=== PATIENT | female | born 1975 | race Caucasian/White ===

== ENCOUNTER → 2018-05-30 | Outpatient (CLI) | payer BC ==
--- NOTE | 2018-06-04 17:00 | MM ---
Reason for exam: screening (asymptomatic). Baseline mammogram. History: Taking hormonal contraceptives beginning at age 15. Physical Findings: Nurse did not find any significant physical abnormalities on exam. MG 3D Screening Mammo W/Cad Bilateral CC and MLO view(s) were taken. The breast tissue is heterogeneously dense. This may lower the sensitivity of mammography. No discrete abnormality. These results were verbally communicated with the patient and result sheet given to the patient on 05/30/18 ASSESSMENT: Benign, BI-RAD 2 RECOMMENDATION: Routine screening mammogram of both breasts in 1 year.
== END | disposition home or self-care (01) ==
LOC: RADMAMWWP 07:10
PROVIDERS: ATTEND Obstetrics & Gynecology
DX: Z12.31 Encounter for screening mammogram for malignant neoplasm of breast (principal)
CPT/HCPCS: 77063; 77067

== ENCOUNTER 2019-12-31 12:28 | Day surgery (SDC) | payer SELFPAY ==
[2019-12-24 14:57] VITALS: BMI 29.5
[~2019-12-31 12:28] MED LIST: DEXAMETHASONE SOD PHOSPHATE 10 MG/ML 1 ML VIAL IV ONE; LACTATED RINGERS 1,000 ML IV SCH; MIDAZOLAM 2 MG/2 ML VIAL IV PRN; ONDANSETRON 4 MG/2 ML VIAL IVP ONE
[2019-12-31] MEDS ORDERED: ONDANSETRON 4 MG/2 ML VIAL ONE (13:21)
[2019-12-31] MEDS: LIDOCAINE 1% (10MG/ML) FOR IV START INTRADERMA PRN ×2 (13:22→13:37)
[2019-12-31 13:27] LABS: Basophils % (A) 0 %; Eosinophils # (A) 0.1 k/uL (0-0.7); Eosinophils % (A) 1 %; HCT 41.5 % (34.0-46.0); HGB 13.6 gm/dL (11.4-16.0); Lymphocytes # (A) 1.2 k/uL (1.0-4.8); Lymphocytes % (A) 12 %; MCH 33.2 pg (25.0-35.0); MCHC 32.7 g/dL (31.0-37.0); MCV 101.6 fL (80.0-100.0); Macrocytosis Slight; Mean Platelet Volume 8.4; Monocytes # (A) 0.3 k/uL (0-1.0); Monocytes % (A) 3 %; Neutrophils # (A) 7.7 k/uL (1.3-7.7); Neutrophils % (A) 82 %; Platelet Count 316 k/uL (150-450); RBC 4.09 m/uL (3.80-5.40); RDW 14.1 % (11.5-15.5); WBC 9.4 k/uL (3.8-10.6)
[2019-12-31] MEDS ORDERED: MIDAZOLAM 2 MG/2 ML VIAL IV ONE (13:31)
[2019-12-31] MEDS ORDERED: fentaNYL (PF) 50 MCG/ML 2 ML AMP IV ONE (13:31)
[2019-12-31] MEDS: HYDROmorphone 0.5 MG/0.5 ML SYRINGE IVP PRN ×2 (13:37→15:39)
[2019-12-31 13:38] LABS: African American GFR (CKD) >90 (>60 ml/min/1.73 sqM); Anion Gap 9 mmol/L; Blood Urea Nitrogen 17 mg/dL (7-17); Calcium 8.9 mg/dL (8.4-10.2); Carbon Dioxide 21 mmol/L (22-30); Chloride 106 mmol/L (98-107); Glucose 104 mg/dL (74-99); Non-African American GFR(CKD) >90 (>60 ml/min/1.73 sqM); Potassium 4.3 mmol/L (3.5-5.1); Sodium 136 mmol/L (137-145)
[2019-12-31] MEDS ORDERED: HYDROmorphone (PF) 1 MG/ML ONE (14:10)
[2019-12-31] MEDS ORDERED: ROPIVACAINE 5 MG/ML 30 ML VIAL ONE (14:10)
[2019-12-31] MEDS ORDERED: PROPOFOL 10 MG/ML 20 ML VIAL IV ONE (14:10)
[2019-12-31] MEDS ORDERED: fentaNYL (PF) 50 MCG/ML 2 ML AMP ONE (14:10)
[2019-12-31] MEDS ORDERED: DEXAMETHASONE SOD PHOSPHATE 4 MG/ML 1 ML VIAL ONE (14:10)
[2019-12-31] MEDS ORDERED: LIDOCAINE 1% INJ 10MG/ML (20 ML MDV) ONE (14:10)
[2019-12-31] MEDS ORDERED: MIDAZOLAM 2 MG/2 ML VIAL ONE (14:10)
[2019-12-31] MEDS ORDERED: ceFAZolin 1,000 MG in SODIUM CHLORIDE 0.9% 1,000 ML IRRIGATION ONE (14:55)
--- NOTE | 2019-12-31 15:12 | P.OP ---
Date of Procedure: 12/31/19 Preoperative Diagnosis: Displaced fracture right distal fibula Postoperative Diagnosis: Displaced fracture right distal fibula Procedure(s) Performed: Open reduction and fixation right distal fibula Implants: Curtis and nephew distal fibular plates Anesthesia: RESHMA Surgeon: Miguel Angel Fernandez Information Systems Professor #1: Lori Rice Estimated Blood Loss (ml): 10 Pathology: none sent Condition: stable Disposition: PACU Indications for Procedure: This is a 44-year-old female that sustained a fall last week and x-rays demonstrated a displaced fracture of her right distal fibula with widening of the ankle mortise. After discussing the surgical nonsurgical treatment options with her at length, I recommended open reduction and internal fixation of right distal fibula. Formed consent was obtained. Operative Findings: The operative findings are consistent with a displaced fracture of the right distal fibula with widening of the ankle mortise Description of Procedure: The patient was seen and evaluated in the preoperative area. The consent was reviewed and the operative site was marked with a skin marker. Patient was then brought to the operating room and given 2 g of Ancef by the anesthesia department. A general anesthetic was then administered by the anesthesia department. Tourniquet was placed on the upper thigh and the lower extremity was then prepped and draped in the usual sterile fashion. A universal timeout was then performed which confirmed the patient's name, surgical site, ALLERGIES, and consent. The lower extremity was then exsanguinated, and the tourniquet inflated to 350 mmHg. A standard lateral incision was then performed over the distal fibula with the skin and subcutaneous tissue sharply incised with the incision centered over the fracture site. Tissues were carefully dissected down to the fracture site. The fracture hematoma was evacuated and the fracture was then reduced with bone reducing clamps. Fluoroscopic x-rays confirmed reduction of the fracture and nondenominational of the ankle mortise. Next, an anterior to posterior lag screw was then placed by over drilling the proximal hole. After the anterior to posterior lag screw was placed, the bone clamp was able to be removed and the fracture was held stable. Next, a distal fibular plate was placed on the lateral aspect of the distal fibula. Screws were then were placed both proximally and distally in order to fixate the plate to the distal fibula. After all the screws then placed, final fluoroscopic x-rays confirmed reduction of the fracture, nondenominational of the ankle mortise, and placement of the plate and screws. The tourniquet was then released and hemostasis was obtained. The incision site was then irrigated with antibiotic solution. Wound was then closed with 2-0 Vicryl for the subcutaneous tissue and anitha for the skin. Sterile dressings were applied, and a well-padded and molded posterior splint was placed. Patient was then transported to the recovery room in stable condition. The preschool teacher assistant Lori Rice NP was required due to the complexity of the surgery and the need for a skilled surgical asst.
[2019-12-31 15:32] VITALS: TEMP 97
--- NOTE | 2019-12-31 15:49 | FL ---
EXAMINATION TYPE: FL guidance operating room, XR ankle complete RT DATE OF EXAM: 12/31/2019 CLINICAL HISTORY: Right ankle fracture. TECHNIQUE: Fluoroscopy. Complete intraoperative views right ankle. COMPARISON: None. FINDINGS: Fluoroscopic guidance was provided during open reduction internal fixation procedure perfo rmed by Dr. Fernandez. A total of 18 seconds of fluoroscopic time was utilized during the procedure a nd 3 spot fluoroscopic intraoperative images are acquired. Images acquired show placement of lateral fixating plate through oblique difficult to visualize later al malleolus fracture. Satisfactory alignment is seen after reduction and fixation on intraoperative images saved. IMPRESSION: As Above.
[2019-12-31] MEDS ORDERED: HYDROcodone/APAP 7.5-325MG 1 EACH TAB ONE (16:25)
[2019-12-31] MEDS ORDERED: HYDROcodone/APAP 7.5-325MG 1 EACH TAB PO ONE (16:27)
[2019-12-31 16:38] VITALS: BP 133/66; PULSE 94; RESP 16
--- NOTE | 2019-12-31 21:35 | P.ANPRN ---
Procedure Note - Anesthesia - Nerve Block Performed Right Adductor Canal Single Time Out Performed: Yes Date of Procedure: 12/31/19 Procedure Start Time: 13:30 Procedure Stop Time: 13:47 Location of Patient: PreOp Indication: Acute Post-Operative Pain, Dx/Pain Location, Requested by Surgeon Specifically requested for management of pain by : Miguel Angel Fernandez Sedation Type: Sedate with meaningful contact maintained Preparation: Sterile Prep Position: Supine Catheter: None Needle Types: Facet Needle Gauge: 20 Ultrasound used to visualize needle placement: Yes Ultrasound used to observe medication spread: Yes Injectate: 0.5% Ropivacaine (see comment for volume) Blood Aspirated: No Pain Paresthesia on Injection Noted: No Resistance on Injection: Normal Image Stored and Saved: Yes Events: Uneventful and Well Tolerated (15cc 0.5% Ropivacaine)
== END 2019-12-31 17:04 | disposition home or self-care (01) ==
LOC: OR 12:28
PROVIDERS: ATTEND Orthopaedic Surgery
DX: S82.831A Other fracture of upper and lower end of right fibula, initial encounter for closed fracture (principal); S93.402A Sprain of unspecified ligament of left ankle, initial encounter; F98.8 Other specified behavioral and emotional disorders with onset usually occurring in childhood and adolescence; R51 Headache; R42 Dizziness and giddiness; L30.9 Dermatitis, unspecified; F17.200 Nicotine dependence, unspecified, uncomplicated; M19.032 Primary osteoarthritis, left wrist; K08.409 Partial loss of teeth, unspecified cause, unspecified class; K08.89 Other specified disorders of teeth and supporting structures; J44.9 Chronic obstructive pulmonary disease, unspecified; K21.9 Gastro-esophageal reflux disease without esophagitis; Z79.899 Other long term (current) drug therapy; Z79.1 Long term (current) use of non-steroidal anti-inflammatories (NSAID); Z79.891 Long term (current) use of opiate analgesic; Z79.82 Long term (current) use of aspirin; Z97.3 Presence of spectacles and contact lenses; Z86.79 Personal history of other diseases of the circulatory system; Z87.09 Personal history of other diseases of the respiratory system; Z91.09 Other allergy status, other than to drugs and biological substances; Z98.890 Other specified postprocedural states; W11.XXXA Fall on and from ladder, initial encounter
CPT/HCPCS: 27792; 64447; 64450; 81025; 76942; 80048; 85025; 73610; C1713; J2250; J1100; J0690 ×2; J2405; J2001; J3010; J1170 ×2; J2795; J2704; 64445

== ENCOUNTER 2021-07-23 10:56 | Day surgery (SDC) | payer BC ==
[2021-07-21 15:07] VITALS: BMI 28.3
--- NOTE | 2021-07-22 19:24 | HP ---
HISTORY AND PHYSICAL CHIEF COMPLAINT: Perforation of the left ear. HISTORY OF PRESENT ILLNESS: The patient is a 46-year-old female who was recently seen in my office complaining of having a hole in her left eardrum. The patient states that six weeks prior to coming to the office she had struck her head and noticed that she had temporarily lost hearing in the left ear. She did not seek any medical attention for six weeks. After a period of time she states that the left ear started draining and at that time she sought medical attention. Her family physician placed on oral antibiotics but the ear continued to drain. Just prior to coming to my office, the left ear stopped draining. She still has noticed a significant decrease in hearing in the left ear. She apparently never had a CT scan performed. At the time that she was seen in the office clinical examination of the left ear revealed a central perforation encompassing 5-10% of the left tympanic membrane. It was recommended the patient undergo an insertion of a Kartush patch to the perforation of the left tympanic membrane. PAST MEDICAL HISTORY: Reveals that the patient has no known allergies to medications. MEDICATIONS: Her current medications are [id number] medications, namely Prilosec and Aleve. REVIEW OF SYSTEMS: Noncontributory. PHYSICAL EXAMINATION: This patient is a 46-year-old female who is alert and cooperative. HEENT examination: Patient is normocephalic. Examination of the right ear is unremarkable. Examination of left ear reveals a central perforation encompassing 5-10% of the left tympanic membrane. The middle ear space is dry and free of any infection or cholesteatoma. Pupils are equal, round, react to light and accommodation. Extraocular movements within normal limits. Intranasal examination reveals moderate to severe septal deviation with compensatory hypertrophy of the inferior turbinates and a moderate amount of mucus on the mucous membranes and draining down posterior pharynx. Examination of the oropharynx and the remainder of the head and neck exam are all within normal limits. Chest/ cardiovascular: Both lung kumar are clear to percussion and auscultation. The patient is in regular sinus rhythm. S1, S2 are present. No murmurs, S3s or S4s. Peripheral pulses are bilaterally symmetrical. Abdomen: There is no evidence of any masses, megaly or tenderness. The abdomen is soft. Skin is unremarkable. Musculoskeletal and neurological are within normal limits. Pelvic/rectal exam: The pelvic rectal exam is deferred at this time because the patient has this done on a regular basis at her family physician's office. The remainder of physical exam is unremarkable. ASSESSMENT: Perforation of the left tympanic membrane. PLAN: The patient is scheduled to undergo insertion of a Kartush patch to the perforation of the left tympanic membrane under IV sedation in the a.m. Attention RNs in the pre-surgical area, I have not ordered any pre-surgical prophylactic antibiotics for this patient. If the pharmacy department sends any pre- surgical prophylactic antibiotics to the pre-surgical area for this patient, that order should be cancelled and the medication should be returned to the pharmacy department. Please make sure that the patient's account is credited appropriately. I have discussed the risks, benefits and alternative therapies for the above-mentioned procedure and for both sedation/analgesia as well as necessary blood product administration, if indicated, as they pertain to this patient. The patient has indicated his or her understanding and acceptance of the risks and procedures discussed. MMBRIAN / LBN: [id number] /
[~2021-07-23 10:56] MED LIST changes: -DEXAMETHASONE SOD PHOSPHATE 10 MG/ML 1 ML VIAL IV ONE; -MIDAZOLAM 2 MG/2 ML VIAL IV PRN; -ONDANSETRON 4 MG/2 ML VIAL IVP ONE; +Pre Op ABX Message 1 EACH MISC MISCELLANE ONE
[2021-07-23 11:26] VITALS: TEMP 97.8
[2021-07-23] MEDS ORDERED: DEXAMETHASONE SOD PHOSPHATE 4 MG/ML 1 ML VIAL IVP ONE (11:30)
[2021-07-23] MEDS ORDERED: SCOPOLAMINE 1.5MG/72HR PATCH TRANSDERM ONE (11:30)
[2021-07-23] MEDS ORDERED: ONDANSETRON 4 MG/2 ML VIAL ONE (11:33)
[2021-07-23] MEDS ORDERED: MIDAZOLAM 2 MG/2 ML VIAL ONE (12:38)
[2021-07-23] MEDS ORDERED: PROPOFOL 10 MG/ML 20 ML VIAL IV ONE (12:38)
[2021-07-23] MEDS ORDERED: fentaNYL (PF) 50 MCG/ML 2 ML AMP ONE (12:38)
[2021-07-23] MEDS ORDERED: ESMOLOL 100 MG/10 ML VIAL ONE (12:38)
[2021-07-23] MEDS ORDERED: OFLOXACIN 0.3% OPHTH DROPS 5 ML BOTTLE LEFT EAR ONE (12:59)
[2021-07-23 13:19] VITALS: RESP 18
[2021-07-23 13:35] VITALS: BP 123/71; PULSE 102
--- NOTE | 2021-07-26 18:03 | OP ---
OPERATIVE REPORT DATE OF SURGERY: 07/23/2021 PREOPERATIVE DIAGNOSIS: Perforation of the left tympanic membrane. POSTOPERATIVE DIAGNOSIS: Perforation of the left tympanic membrane. OPERATIVE PROCEDURE: Insertion of a 3 mm Kartush patch to a perforation of the left tympanic membrane. SURGEON: Dr. Gaitan. COMPLICATIONS: None. ANESTHESIA: IV sedation with M.A.C. PROCEDURE DESCRIPTION: The patient was placed on the operating table in supine position, and after uneventful induction and IV sedation, satisfactory sedation was obtained. Next the patient's left ear was draped in the usual and customary fashion. Next, using a #3 aural speculum and the Zeiss operating microscope, the left external auditory canal was cleansed of all wax and debris. Next, inspection of the patient's left tympanic membrane revealed that there was a 1 to 2 mm perforation located in the superior aspect of the left tympanic membrane. A 3 mm Kartush patch was inserted into the perforation using a pair of alligator forceps without difficulty. At this point the procedure was terminated. There were no intraoperative complications. The patient tolerated the procedure well and was returned to the recovery room in satisfactory condition. MMODL / IJN: [id number] /
== END 2021-07-23 14:11 | disposition home or self-care (01) ==
LOC: OR 10:56
PROVIDERS: ATTEND Otolaryngology
DX: H72.92 Unspecified perforation of tympanic membrane, left ear (principal); J45.909 Unspecified asthma, uncomplicated; H91.90 Unspecified hearing loss, unspecified ear
CPT/HCPCS: 69436; 81025; J2250; J1100; J2405; J3010; J2704

== ENCOUNTER → 2021-10-07 | Outpatient (CLI) | payer BC ==
--- NOTE | 2021-10-08 15:31 | MM ---
Reason for Exam: Screening (asymptomatic). Last mammogram was performed 3 year(s) and 4 month(s) ago. Patient History: Menarche at age 13. Currently using Hormonal Contraceptives, starting at age 15. Paternal cousin had breast cancer. Risk Values: Robyn 5 year model risk: 0.6%. NCI Lifetime model risk: 6.2%. Film Views: Bilateral CC views were taken. Bilateral MLO views were taken. Prior Study Comparison: 05/30/2018 Bilateral Screening Mammogram, [facility]. Tissue Density: The breast tissue is heterogeneously dense. This may lower the sensitivity of mammography. Findings: Analyzed By CAD. There is no suspicious new group of microcalcifications or new suspicious mass in either breast. Overall Assessment: Negative, BI-RAD 1 Management: Screening Mammogram of both breasts in 1 year. A clinical breast exam by your physician is recommended on an annual basis and results should be correlated with mammographic findings. Electronically signed and approved by: Donaldo Abad M.D.
== END | disposition home or self-care (01) ==
LOC: RADMAMWWP 17:35
PROVIDERS: ATTEND Obstetrics & Gynecology
DX: Z12.31 Encounter for screening mammogram for malignant neoplasm of breast (principal); Z80.3 Family history of malignant neoplasm of breast
CPT/HCPCS: 77063; 77067

== ENCOUNTER 2023-02-11 09:02 | Inpatient (IN) | payer BC ==
[2023-02-11] MEDS ORDERED: ONDANSETRON 4 MG/2 ML VIAL IVP STA (09:49)
[2023-02-11] MEDS ORDERED: SODIUM CHLORIDE 0.9% 1,000 ML IV ONE ×2 (09:49→11:35)
[2023-02-11 09:52] LABS: Glucose,Whole Blood 151 mg/dL (70-110)
--- NOTE | 2023-02-11 10:06 | ED ---
General Adult HPI - General Chief complaint: Nausea/Vomiting/Diarrhea Stated complaint: Vomiting Time Seen by Provider: 02/11/23 09:06 Source: patient, RN notes reviewed, old records reviewed Mode of arrival: wheelchair Limitations: no limitations - History of Present Illness Initial comments: 47-year-old female presents for evaluation of nausea vomiting. Patient has had poor appetite and poor intake over the past several weeks to months. She has be en bedbound secondary to injury to her leg one year ago. She states she has been urinating but her urine is been very dark. She reports significant nausea and vomiting. No abdominal pain. - Related Data Home Medications Medication Instructions Recorded Confirmed Omeprazole Magnesium [PriLOSEC OTC] 20 mg PO DAILY 02/11/23 02/11/23 Allergies Allergy/AdvReac Type Severity Reaction Status Date / Time No Known Allergies Allergy Verified 02/11/23 12:15 Review of Systems ROS Statement: Those systems with pertinent positive or pertinent negative responses have been documented in the HPI. ROS Other: All systems not noted in ROS Statement are negative. Past Medical History Past Medical History: Asthma, GERD/Reflux, Hearing Disorder / Deafness, Skin Disorder Additional Past Medical History / Comment(s): seasonal allergies, heart murmur,. exercise induced asthma, bilat varicose veins, migraines, occasional edema lower legs, eczema, periorbital dermatitis History of Any Multi-Drug Resistant Organisms: None Reported Past Surgical History: Orthopedic Surgery Additional Past Surgical History / Comment(s): bilat varicose vein sx, EGD, sinus surg., ORIF right ankle, arthroscopic left knee surg. 3 weeks ago @[facility] Past Anesthesia/Blood Transfusion Reactions: Previous Problems w/ Anesthesia, Motion Sickness, Postoperative Nausea & Vomiting (PONV) Additional Past Anesthesia/Blood Transfusion Reaction / Comment(s): slow to wake up after sinus sx years ago, PONV after knee surg. 3 weeks ago-normally doesn't have that problem Past Psychological History: ADD/ADHD Smoking Status: Second hand smoke exposure - Past Family History Mother Family Medical History: No Reported History General Exam Limitations: no limitations General appearance: alert, in distress Head exam: Present: atraumatic, normocephalic Eye exam: Present: normal appearance, PERRL ENT exam: Present: mucous membranes dry Neck exam: Present: normal inspection. Absent: tenderness, meningismus Respiratory exam: Present: respiratory distress. Absent: wheezes, rales, rhonchi Cardiovascular Exam: Present: normal rhythm, tachycardia GI/Abdominal exam: Present: soft. Absent: distended, tenderness, guarding, rebound Extremities exam: Present: normal inspection, normal capillary refill. Absent: pedal edema Neurological exam: Present: alert, oriented X3, CN II-XII intact. Absent: motor sensory deficit Psychiatric exam: Present: anxious Skin exam: Present: warm, dry, intact Course Vital Signs 02/11/23 02/11/23 02/11/23 09:10 10:04 12:52 Temperature 97.8 F Pulse Rate 120 H 82 96 Respiratory 26 H 22 18 Rate Blood Pressure 135/86 128/93 123/88 O2 Sat by Pulse 96 100 97 Oximetry Medical Decision Making - Medical Decision Making Was pt. sent in by a medical professional or institution ([facility]ALA Newman, CLOTHES DESIGNER, urgent care, hospital, or [facility]...) When possible be specific @ -No Did you speak to anyone other than the patient for history (EMS, parent, family, police, friend...)? What history was obtained from this source @ -No Did you review nursing and triage notes (agree or disagree)? Why? @ -I reviewed and agree with nursing and triage notes Were old charts reviewed (outside hosp., previous admission, EMS record, old EKG, old radiological studies, urgent care reports/EKG's, [facility] records)? Report findings @ -No old charts were reviewed Differential Diagnosis (chest pain, altered mental status, abdominal pain women, abdominal pain men, vaginal bleeding, weakness, fever, dyspnea, syncope, headache, dizziness, GI bleed, back pain, seizure, CVA, palpatations, mental health, musculoskeletal)? @ -not applicable EKG interpreted by me (3pts min.). @Sinus tachycardia rate of 103, UT interval 152, QRS duration 102, no ST segment elevation. X-rays interpreted by me (1pt min.). @ -None done CT interpreted by me (1pt min.). @ -None done U/S interpreted by me (1pt. min.). @ -None done What testing was considered but not performed or refused? (CT, X-rays, U/S, labs)? Why? @ -None What meds were considered but not given or refused? Why? @ -None Did you discuss the management of the patient with other professionals (professionals i.e. DrAb, PA, CLOTHES DESIGNER, lab, RT, psych nurse, foster care social worker, animal nutrition consultant, teacher, chief lifestyle officer, pillowcase cutter)? Give summary @ -Dr. Vega, [facility] Was smoking cessation discussed for >3mins.? @ -No Was critical care preformed (if so, how long)? @ -Yes, 35 minutes Were there social determinants of health that impacted care today? How? (H omelessness, low income, unemployed, alcoholism, drug addiction, transportation, low edu. Level, literacy, decrease access to med. care, skilled nursing, rehab)? @ -No Was there de-escalation of care discussed even if they declined (Discuss DNR or withdrawal of care, Hospice)? DNR status @ -No What co-morbidities impacted this encounter? (DM, HTN, Smoking, COPD, CAD, Cancer, CVA, ARF, Chemo, Hep., AIDS, mental health diagnosis, sleep apnea, morbid obesity)? @ -Alcohol abuse Was patient admitted / discharged? Hospital course, mention meds given and route, prescriptions, significant lab abnormalities, going to OR and other pertinent info. @ -[47-year-old female presenting with nausea vomiting, poor poor oral intake over the past month at least. Patient has had vomiting over the past 24 hours. She appears dehydrated and is tachypneic which is likely secondary to metabolic acidosis. She has anion gap metabolic acidosis with a lactic acid 2.7 CO2 of 15 and an anion gap of 27. Her magnesium is 0.9 which is replaced. Patient's lactic acid is down trending in the emergency department after fluids. She will be admitted for likely replacement, hydration, symptom management. Undiagnosed new problem with uncertain prognosis? @ -No Drug Therapy requiring intensive monitoring for toxicity (Heparin, Nitro, In sulin, Cardizem)? @ -No Were any procedures done? @ -No Diagnosis/symptom? @ -Alcohol abuse, dehydration, hypomagnesemia Acute, or Chronic, or Acute on Chronic? @ -[Acute on chronic Uncomplicated (without systemic symptoms) or Complicated (systemic symptoms)? @ -default Side effects of treatment? @ -No Exacerbation, Progression, or Severe Exacerbation? @ -No Poses a threat to life or bodily function? How? (Chest pain, USA, NM, pneumonia, PE, COPD, DKA, ARF, appy, cholecystitis, CVA, Diverticulitis, Homicidal, Suicidal, threat to staff... and all critical care pts) @ -[yes,E- abnormality, arrhythmia, acidosis - Lab Data Result diagrams: 02/11/23 09:51 02/11/23 09:51 Lab Results 02/11/23 02/11/23 02/11/23 Range/Units 09:39 09:51 09:51 WBC 8.7 (3.8-10.6) k/uL RBC 3.94 (3.80-5.40) m/uL Hgb 13.3 (11.4-16.0) gm/dL Hct 39.7 (34.0-46.0) % MCV 100.8 H (80.0-100.0) fL MCH 33.8 (25.0-35.0) pg MCHC 33.5 (31.0-37.0) g/dL RDW 14.0 (11.5-15.5) % Plt Count 256 (150-450) k/uL MPV 9.2 Neutrophils % 70 % Lymphocytes % 19 % Monocytes % 8 % Eosinophils % 1 % Basophils % 0 % Neutrophils # 6.1 (1.3-7.7) k/uL Lymphocytes # 1.7 (1.0-4.8) k/uL Monocytes # 0.7 (0-1.0) k/uL Eosinophils # 0.1 (0-0.7) k/uL Basophils # 0.0 (0-0.2) k/uL Macrocytosis Slight PT 11.2 (9.0-12.0) sec INR 1.1 (<1.2) APTT 23.5 (22.0-30.0) sec VBG pH (7.31-7.41) VBG pCO2 (37-51) mmHg VBG HCO3 (24-28) mmol/L Sodium (137-145) mmol/L Potassium (3.5-5.1) mmol/L Chloride (98-107) mmol/L Carbon Dioxide (22-30) mmol/L Anion Gap mmol/L BUN (7-17) mg/dL Creatinine (0.52-1.04) mg/dL Est GFR (CKD-EPI)AfAm (>60 ml/min/1.73 sqM) Est GFR (CKD-EPI)NonAf (>60 ml/min/1.73 sqM) Glucose (74-99) mg/dL POC Glucose (mg/dL) 151 H (70-110) mg/dL POC Glu Cap Jewel Plate Assembler ID Yuko Bagley Lactic Ac Sepsis Rflx Plasma Lactic Acid Anup (0.7-2.0) mmol/L Calcium (8.4-10.2) mg/dL Magnesium (1.6-2.3) mg/dL Total Bilirubin (0.2-1.3) mg/dL AST (14-36) U/L ALT (4-34) U/L Alkaline Phosphatase (38-126) U/L Total Protein (6.3-8.2) g/dL Albumin (3.5-5.0) g/dL Lipase (23-300) U/L Urine Color Urine Appearance (Clear) Urine pH (5.0-8.0) Ur Specific Chavies (1.001-1.035) Urine Protein (Negative) Urine Glucose (UA) (Negative) Urine Ketones (Negative) Urine Blood (Negative) Urine Nitrite (Negative) Urine Bilirubin (Negative) Urine Urobilinogen (<2.0) mg/dL Ur Leukocyte Esterase (Negative) Urine RBC (0-5) /hpf Urine WBC (0-5) /hpf Ur Squamous Epith Cells (0-4) /hpf Urine Bacteria (None) /hpf Cellular Casts (0) /lpf Hyaline Casts (0-2) /lpf Urine Mucus (None) /hpf Serum Alcohol mg/dL 02/11/23 02/11/23 02/11/23 Range/Units 09:51 09:51 09:51 WBC (3.8-10.6) k/uL RBC (3.80-5.40) m/uL Hgb (11.4-16.0) gm/dL Hct (34.0-46.0) % MCV (80.0-100.0) fL MCH (25.0-35.0) pg MCHC (31.0-37.0) g/dL RDW (11.5-15.5) % Plt Count (150-450) k/uL MPV Neutrophils % % Lymphocytes % % Monocytes % % Eosinophils % % Basophils % % Neutrophils # (1.3-7.7) k/uL Lymphocytes # (1.0-4.8) k/uL Monocytes # (0-1.0) k/uL Eosinophils # (0-0.7) k/uL Basophils # (0-0.2) k/uL Macrocytosis PT (9.0-12.0) sec INR (<1.2) APTT (22.0-30.0) sec VBG pH (7.31-7.41) VBG pCO2 (37-51) mmHg VBG HCO3 (24-28) mmol/L Sodium 135 L (137-145) mmol/L Potassium 3.6 (3.5-5.1) mmol/L Chloride 93 L (98-107) mmol/L Carbon Dioxide 15 L (22-30) mmol/L Anion Gap 27 mmol/L BUN 12 (7-17) mg/dL Creatinine 0.62 (0.52-1.04) mg/dL Est GFR (CKD-EPI)AfAm >90 (>60 ml/min/1.73 sqM) Est GFR (CKD-EPI)NonAf >90 (>60 ml/min/1.73 sqM) Glucose 132 H (74-99) mg/dL POC Glucose (mg/dL) (70-110) mg/dL POC Glu Cap Jewel Plate Assembler ID Lactic Ac Sepsis Rflx Plasma Lactic Acid Anup 10.7 H* (0.7-2.0) mmol/L Calcium 9.0 (8.4-10.2) mg/dL Magnesium 0.9 L* (1.6-2.3) mg/dL Total Bilirubin 1.0 (0.2-1.3) mg/dL AST 81 H (14-36) U/L ALT 23 (4-34) U/L Alkaline Phosphatase 65 (38-126) U/L Total Protein 6.8 (6.3-8.2) g/dL Albumin 4.1 (3.5-5.0) g/dL Lipase 70 (23-300) U/L Urine Color Yellow Urine Appearance Cloudy H (Clear) Urine pH 6.0 (5.0-8.0) Ur Specific Chavies 1.020 (1.001-1.035) Urine Protein 1+ H (Negative) Urine Glucose (UA) Negative (Negative) Urine Ketones Trace H (Negative) Urine Blood Small H (Negative) Urine Nitrite Negative (Negative) Urine Bilirubin 1+ H (Negative) Urine Urobilinogen 4.0 (<2.0) mg/dL Ur Leukocyte Esterase Large H (Negative) Urine RBC 3 (0-5) /hpf Urine WBC 45 H (0-5) /hpf Ur Squamous Epith Cells 5 H (0-4) /hpf Urine Bacteria Many H (None) /hpf Cellular Casts 3 (0) /lpf Hyaline Casts 2 (0-2) /lpf Urine Mucus Moderate H (None) /hpf Serum Alcohol <10 mg/dL 02/11/23 02/11/23 02/11/23 Range/Units 09:51 11:29 12:41 WBC (3.8-10.6) k/uL RBC (3.80-5.40) m/uL Hgb (11.4-16.0) gm/dL Hct (34.0-46.0) % MCV (80.0-100.0) fL MCH (25.0-35.0) pg MCHC (31.0-37.0) g/dL RDW (11.5-15.5) % Plt Count (150-450) k/uL MPV Neutrophils % % Lymphocytes % % Monocytes % % Eosinophils % % Basophils % % Neutrophils # (1.3-7.7) k/uL Lymphocytes # (1.0-4.8) k/uL Monocytes # (0-1.0) k/uL Eosinophils # (0-0.7) k/uL Basophils # (0-0.2) k/uL Macrocytosis PT (9.0-12.0) sec INR (<1.2) APTT (22.0-30.0) sec VBG pH 7.53 H (7.31-7.41) VBG pCO2 22 L (37-51) mmHg VBG HCO3 18 L (24-28) mmol/L Sodium (137-145) mmol/L Potassium (3.5-5.1) mmol/L Chloride (98-107) mmol/L Carbon Dioxide (22-30) mmol/L Anion Gap mmol/L BUN (7-17) mg/dL Creatinine (0.52-1.04) mg/dL Est GFR (CKD-EPI)AfAm (>60 ml/min/1.73 sqM) Est GFR (CKD-EPI)NonAf (>60 ml/min/1.73 sqM) Glucose (74-99) mg/dL POC Glucose (mg/dL) (70-110) mg/dL POC Glu Cap Jewel Plate Assembler ID Lactic Ac Sepsis Rflx Y Plasma Lactic Acid Anup 3.2 H* (0.7-2.0) mmol/L Calcium (8.4-10.2) mg/dL Magnesium (1.6-2.3) mg/dL Total Bilirubin (0.2-1.3) mg/dL AST (14-36) U/L ALT (4-34) U/L Alkaline Phosphatase (38-126) U/L Total Protein (6.3-8.2) g/dL Albumin (3.5-5.0) g/dL Lipase (23-300) U/L Urine Color Urine Appearance (Clear) Urine pH (5.0-8.0) Ur Specific Chavies (1.001-1.035) Urine Protein (Negative) Urine Glucose (UA) (Negative) Urine Ketones (Negative) Urine Blood (Negative) Urine Nitrite (Negative) Urine Bilirubin (Negative) Urine Urobilinogen (<2.0) mg/dL Ur Leukocyte Esterase (Negative) Urine RBC (0-5) /hpf Urine WBC (0-5) /hpf Ur Squamous Epith Cells (0-4) /hpf Urine Bacteria (None) /hpf Cellular Casts (0) /lpf Hyaline Casts (0-2) /lpf Urine Mucus (None) /hpf Serum Alcohol mg/dL Critical Care Time Critical Care Time: Yes Total Critical Care Time: 35 Disposition Clinical Impression: Dehydration, High anion gap metabolic acidosis, Lactic acidosis, Hypomagnesemia Disposition: ADMITTED IP TO THIS [facility] Condition: Stable Is patient prescribed a controlled substance at d/c from ED?: No Referrals: Nonstaff,Physician [Primary Care Provider] - 1-2 days Time of Disposition: 13:51
[2023-02-11 11:03] LABS: Basophils % (A) 0 %; Eosinophils # (A) 0.1 k/uL (0-0.7); Eosinophils % (A) 1 %; HCT 39.7 % (34.0-46.0); HGB 13.3 gm/dL (11.4-16.0); Lymphocytes # (A) 1.7 k/uL (1.0-4.8); Lymphocytes % (A) 19 %; MCH 33.8 pg (25.0-35.0); MCHC 33.5 g/dL (31.0-37.0); MCV 100.8 fL (80.0-100.0); Macrocytosis Slight; Mean Platelet Volume 9.2; Monocytes # (A) 0.7 k/uL (0-1.0); Monocytes % (A) 8 %; Neutrophils # (A) 6.1 k/uL (1.3-7.7); Neutrophils % (A) 70 %; Platelet Count 256 k/uL (150-450); RBC 3.94 m/uL (3.80-5.40); WBC 8.7 k/uL (3.8-10.6)
[2023-02-11 11:15] LABS: ALT 23 U/L (4-34); AST 81 U/L (14-36); African American GFR (CKD) >90 (>60 ml/min/1.73 sqM); Albumin 4.1 g/dL (3.5-5.0); Alcohol <10 mg/dL; Alkaline Phosphatase 65 U/L (38-126); Anion Gap 27 mmol/L; Blood Urea Nitrogen 12 mg/dL (7-17); Carbon Dioxide 15 mmol/L (22-30); Chloride 93 mmol/L (98-107); Glucose 132 mg/dL (74-99); Lipase 70 U/L (23-300); Non-African American GFR(CKD) >90 (>60 ml/min/1.73 sqM); Potassium 3.6 mmol/L (3.5-5.1); Sodium 135 mmol/L (137-145); Total Protein 6.8 g/dL (6.3-8.2)
[2023-02-11 11:21] LABS: INR 1.1 (<1.2); Prothrombin Time 11.2 sec (9.0-12.0)
[2023-02-11 11:22] LABS: Partial Thromboplastin Time 23.5 sec (22.0-30.0)
[2023-02-11 11:23] LABS: VBG PH 7.53 (7.31-7.41)
[2023-02-11 11:29] LABS: Magnesium 0.9 mg/dL (1.6-2.3)
[2023-02-11] MEDS ORDERED: LORazepam 2 MG/ML INJ IV PRN (11:35)
[2023-02-11] MEDS ORDERED: THIAMINE 100 MG/ML 2 ML VIAL IM STA (11:35)
[2023-02-11] MEDS: LORazepam 2 MG/ML INJ IV PRN ×3 (12:29→22:00)
[2023-02-11 12:44] LABS: Appearance,Urine Cloudy (Clear); Bacteria,Urine Many /hpf; Bilirubin,Urine 1+ (Negative); Blood,Urine Small (Negative); Cellular Casts,Urine 3 /lpf (0); Color,Urine Yellow; Glucose,Urine (UA) Negative (Negative); Hyaline Casts,Urine 2 /lpf (0-2); Ketones,Urine Trace (Negative); Leukocyte Esterase,Urine Large (Negative); Mucus,Urine Moderate /hpf; Nitrite,Urine Negative (Negative); Protein,Urine 1+ (Negative); RBC,Urine 3 /hpf (0-5); Squamous Epithelial Cell,Urine 5 /hpf (0-4); WBC,Urine 45 /hpf (0-5)
[2023-02-11] MEDS: MAGNESIUM SULFATE-D5W PMX 1 GM in DEXTROSE/WATER 1 100ML.BAG IVPB SCH ×2 (12:50→13:57)
[2023-02-11] MEDS ORDERED: ONDANSETRON 4 MG/2 ML VIAL IVP PRN (13:48)
[2023-02-11] MEDS ORDERED: NALOXONE 0.4 MG/ML 1 ML VIAL IV PRN (13:48)
[2023-02-11] MEDS: SODIUM CHLORIDE 0.9% 1,000 ML IV SCH ×2 (13:57→22:02)
--- NOTE | 2023-02-11 17:01 | P.HPIM ---
History of Present Illness H&P Date: 02/11/23 Chief Complaint: Nausea/vomiting/diarrhea 47-year-old female, history of asthma, GERD, migraines, alcohol abuse, presents for evaluation of nausea vomiting. Patient has had poor appetite and poor intake over the past several weeks to months. She has been bedbound secondary to injury to her leg one year ago. She states she has been urinating but her urine is been very dark. She reports significant nausea and vomiting. No abdominal pain. Echo completed in ED is easier to PBC of 8.7, hemoglobin of 13.3 and platelet count of 256, sodium 135, potassium 3.6, BUN/creatinine of 12/0.62, CO2 of 15 and anion gap of 27, and blood glucose of 132, lactic acid is elevated at 10.7, magnesium 0.9, AST elevated at 81, UA is positive for leukocyte esterase, bacteria and WBCs Patient was given again tachycardic upon presentation; received fluid boluses in ED; lactic acid is currently trending down Review of Systems REVIEW OF SYSTEMS: CONSTITUTIONAL: No fever, no malaise, no fatigue. HEENT: No recent visual problems or hearing problems. Denied any sore throat. CARDIOVASCULAR: No chest pain, orthopnea, PND, no palpitations, no syncope. PULMONARY: No shortness of breath, no cough, no hemoptysis. GASTROINTESTINAL: No diarrhea, no nausea, no vomiting, no abdominal pain. NEUROLOGICAL: No headaches, no weakness, no numbness. HEMATOLOGICAL: Denies any bleeding or petechiae. GENITOURINARY: Denies any burning micturition, frequency, or urgency. MUSCULOSKELETAL/RHEUMATOLOGICAL: Denies any joint pain, swelling, or any muscle pain. ENDOCRINE: Denies any polyuria or polydipsia. The rest of the 14-point review of systems is negative. Past Medical History Past Medical History: Asthma, GERD/Reflux, Hearing Disorder / Deafness, Skin Disorder Additional Past Medical History / Comment(s): seasonal allergies, heart murmur,. exercise induced asthma, bilat varicose veins, migraines, occasional edema lower legs, eczema, periorbital dermatitis History of Any Multi-Drug Resistant Organisms: None Reported Past Surgical History: Orthopedic Surgery Additional Past Surgical History / Comment(s): bilat varicose vein sx, EGD, sinus surg., ORIF right ankle, arthroscopic left knee surg. 3 weeks ago @[facility] Past Anesthesia/Blood Transfusion Reactions: Previous Problems w/ Anesthesia, Motion Sickness, Postoperative Nausea & Vomiting (PONV) Additional Past Anesthesia/Blood Transfusion Reaction / Comment(s): slow to wake up after sinus sx years ago, PONV after knee surg. 3 weeks ago-normally doesn't have that problem Past Psychological History: ADD/ADHD Smoking Status: Second hand smoke exposure - Past Family History Mother Family Medical History: No Reported History Medications and Allergies Home Medications Medication Instructions Recorded Confirmed Type Omeprazole Magnesium [PriLOSEC OTC] 20 mg PO DAILY 02/11/23 02/11/23 History Allergies Allergy/AdvReac Type Severity Reaction Status Date / Time No Known Allergies Allergy Verified 02/11/23 12:15 Physical Exam Vitals: Vital Signs Temp Pulse Resp BP Pulse Ox 02/11/23 12:52 96 18 123/88 97 02/11/23 10:04 82 22 128/93 100 02/11/23 09:10 97.8 F 120 H 26 H 135/86 96 Intake and Output 02/10/23 02/11/23 02/11/23 22:59 06:59 14:59 Other: Weight 68.039 kg PHYSICAL EXAMINATION: GENERAL: The patient is alert and oriented x3, not in any acute distress. Well developed, well nourished. HEENT: Pupils are round and equally reacting to light. EOMI. No scleral icterus. No conjunctival pallor. Normocephalic, atraumatic. No pharyngeal erythema. No thyromegaly. CARDIOVASCULAR: S1 and S2 present. No murmurs, rubs, or gallops. PULMONARY: Chest is clear to auscultation, no wheezing or crackles. ABDOMEN: Soft, nontender, nondistended, normoactive bowel sounds. No palpable organomegaly. MUSCULOSKELETAL: No joint swelling or deformity. EXTREMITIES: No cyanosis, clubbing, or pedal edema. NEUROLOGICAL: Gross neurological examination did not reveal any focal deficits. SKIN: No rashes. Results CBC & Chem 7: 02/11/23 09:51 02/11/23 09:51 Labs: Abnormal Lab Results - Last 24 Hours (Table) 02/11/23 02/11/23 02/11/23 Range/Units 09:39 09:51 09:51 MCV 100.8 H (80.0-100.0) fL VBG pH (7.31-7.41) VBG pCO2 (37-51) mmHg VBG HCO3 (24-28) mmol/L Sodium (137-145) mmol/L Chloride (98-107) mmol/L Carbon Dioxide (22-30) mmol/L Glucose (74-99) mg/dL POC Glucose (mg/dL) 151 H (70-110) mg/dL Plasma Lactic Acid Anup (0.7-2.0) mmol/L Magnesium (1.6-2.3) mg/dL AST (14-36) U/L Urine Appearance Cloudy H (Clear) Urine Protein 1+ H (Negative) Urine Ketones Trace H (Negative) Urine Blood Small H (Negative) Urine Bilirubin 1+ H (Negative) Ur Leukocyte Esterase Large H (Negative) Urine WBC 45 H (0-5) /hpf Ur Squamous Epith Cells 5 H (0-4) /hpf Urine Bacteria Many H (None) /hpf Urine Mucus Moderate H (None) /hpf 02/11/23 02/11/23 02/11/23 Range/Units 09:51 09:51 09:51 MCV (80.0-100.0) fL VBG pH 7.53 H (7.31-7.41) VBG pCO2 22 L (37-51) mmHg VBG HCO3 18 L (24-28) mmol/L Sodium 135 L (137-145) mmol/L Chloride 93 L (98-107) mmol/L Carbon Dioxide 15 L (22-30) mmol/L Glucose 132 H (74-99) mg/dL POC Glucose (mg/dL) (70-110) mg/dL Plasma Lactic Acid Anup 10.7 H* (0.7-2.0) mmol/L Magnesium 0.9 L* (1.6-2.3) mg/dL AST 81 H (14-36) U/L Urine Appearance (Clear) Urine Protein (Negative) Urine Ketones (Negative) Urine Blood (Negative) Urine Bilirubin (Negative) Ur Leukocyte Esterase (Negative) Urine WBC (0-5) /hpf Ur Squamous Epith Cells (0-4) /hpf Urine Bacteria (None) /hpf Urine Mucus (None) /hpf 02/11/23 Range/Units 12:41 MCV (80.0-100.0) fL VBG pH (7.31-7.41) VBG pCO2 (37-51) mmHg VBG HCO3 (24-28) mmol/L Sodium (137-145) mmol/L Chloride (98-107) mmol/L Carbon Dioxide (22-30) mmol/L Glucose (74-99) mg/dL POC Glucose (mg/dL) (70-110) mg/dL Plasma Lactic Acid Anup 3.2 H* (0.7-2.0) mmol/L Magnesium (1.6-2.3) mg/dL AST (14-36) U/L Urine Appearance (Clear) Urine Protein (Negative) Urine Ketones (Negative) Urine Blood (Negative) Urine Bilirubin (Negative) Ur Leukocyte Esterase (Negative) Urine WBC (0-5) /hpf Ur Squamous Epith Cells (0-4) /hpf Urine Bacteria (None) /hpf Urine Mucus (None) /hpf Assessment and Plan Assessment: 1. Acute metabolic acidosis; likely related to dehydration resulting from nausea and vomiting with poor oral intake is 24 hours - Patient received IV fluid boluses in ED; lactic acid has trended down to 3.2; we will continue to monitor lactic acid levels every 4 hours to normal - Continue with IV fluid hydration with normal saline at rate of 100 mL an hour 2. Critical hypomagnesemia; magnesium level is down to 0.9; supplemented in ED; we will repeat magnesium levels and make further supplementation as needed 3. Alcohol abuse with impending withdrawals; serum alcohol level is less than 10 - Patient will be monitored closely on CIWA protocol; has been placed on IV fluids and thiamine supplement 4. UTI; patient is placed on IV Rocephin 1 g daily; we will monitor CBC, CMP and pro-calcitonin; further recommendations on antibiotic therapy pending urine and blood cultures 5. Gastroesophageal reflux disease; Protonix 40 mg IV daily DVT prophylaxis; SCDs/subcu heparin CODE STATUS; full code
[2023-02-11] MEDS: HEPARIN SODIUM,PORCINE 5,000 UNIT/ML 1 ML VIAL SQ SCH (18:33)
[2023-02-12] MEDS: HEPARIN SODIUM,PORCINE 5,000 UNIT/ML 1 ML VIAL SQ SCH ×4 (01:32→23:09)
[2023-02-12] MEDS: LORazepam 2 MG/ML INJ IV PRN ×2 (06:59→14:19)
[2023-02-12 08:14] LABS: Basophils % (A) 0 %; Eosinophils # (A) 0.1 k/uL (0-0.7); Eosinophils % (A) 3 %; HCT 29.9 % (34.0-46.0); Lymphocytes # (A) 0.8 k/uL (1.0-4.8); Lymphocytes % (A) 23 %; MCH 34.9 pg (25.0-35.0); MCHC 34.2 g/dL (31.0-37.0); MCV 102.1 fL (80.0-100.0); Macrocytosis Slight; Mean Platelet Volume 8.8; Monocytes # (A) 0.3 k/uL (0-1.0); Monocytes % (A) 8 %; Neutrophils # (A) 2.3 k/uL (1.3-7.7); Neutrophils % (A) 65 %; Platelet Count 165 k/uL (150-450); RBC 2.92 m/uL (3.80-5.40); RDW 14.5 % (11.5-15.5); WBC 3.6 k/uL (3.8-10.6)
[2023-02-12 08:20] LABS: HGB 10.2 gm/dL (11.4-16.0)
[2023-02-12] MEDS: THIAMINE 100 MG TAB PO SCH (08:26)
[2023-02-12] MEDS: PANTOPRAZOLE 40 MG/10 ML VIAL IVP SCH (08:26)
[2023-02-12 08:32] LABS: African American GFR (CKD) >90 (>60 ml/min/1.73 sqM); Anion Gap 5 mmol/L; Blood Urea Nitrogen 10 mg/dL (7-17); Carbon Dioxide 28 mmol/L (22-30); Chloride 102 mmol/L (98-107); Glucose 93 mg/dL (74-99); Magnesium 1.4 mg/dL (1.6-2.3); Non-African American GFR(CKD) >90 (>60 ml/min/1.73 sqM); Potassium 2.8 mmol/L (3.5-5.1); Sodium 135 mmol/L (137-145)
[2023-02-12] MEDS ORDERED: POTASSIUM CHLORIDE 20 MEQ in WATER FOR INJECTION 1 100ML.BAG IVPB STA (11:23)
[2023-02-12] MEDS ORDERED: POTASSIUM CHLORIDE ER 20 MEQ TAB.ER PO STA (11:25)
[2023-02-12] MEDS: MAGNESIUM SULFATE-D5W PMX 1 GM in DEXTROSE/WATER 1 100ML.BAG IVPB SCH ×2 (13:23→14:19)
--- NOTE | 2023-02-12 17:06 | P.PN ---
Subjective Progress Note Date: 02/12/23 47-year-old female, history of asthma, GERD, migraines, alcohol abuse, presents for evaluation of nausea vomiting. Patient has had poor appetite and poor intake over the past several weeks to months. She has been bedbound secondary to injury to her leg one year ago. She states she has been urinating but her urine is been very dark. She reports significant nausea and vomiting. No abdominal pain. Echo completed in ED is easier to PBC of 8.7, hemoglobin of 13.3 and platelet count of 256, sodium 135, potassium 3.6, BUN/creatinine of 12/0.62, CO2 of 15 and anion gap of 27, and blood glucose of 132, lactic acid is elevated at 10.7, magnesium 0.9, AST elevated at 81, UA is positive for leukocyte esterase, bacteria and WBCs Patient was given again tachycardic upon presentation; received fluid boluses in ED; lactic acid is currently trending down --- Potassium level is down to 2.8 this morning with magnesium somewhat improved at 1.4; we will supplement potassium with IV and oral; 2 g magnesium sulfate IV - Continue to monitor electrolytes closely and supplement as needed - Patient remains on IV Rocephin for UTI; antibiotics are adjusted once culture results are available -- Remains on [facility] protocol Objective - Vital Signs Vital signs: Vital Signs Temp 98.2 F 02/12/23 08:00 Pulse 90 02/12/23 08:00 Resp 20 02/12/23 08:00 BP 96/66 02/12/23 08:00 Pulse Ox 99 02/12/23 08:00 FiO2 Intake & Output 02/11/23 02/12/23 02/12/23 18:59 06:59 18:59 Weight 68.039 kg Other: Voiding Method Bedside Commode # Voids 1 1 # Bowel Movements 1 - Exam GENERAL: The patient is alert and oriented x3, not in any acute distress. Well developed, well nourished. HEENT: Pupils are round and equally reacting to light. EOMI. No scleral icterus. No conjunctival pallor. Normocephalic, atraumatic. No pharyngeal erythema. No thyromegaly. CARDIOVASCULAR: S1 and S2 present. No murmurs, rubs, or gallops. PULMONARY: Chest is clear to auscultation, no wheezing or crackles. ABDOMEN: Soft, nontender, nondistended, normoactive bowel sounds. No palpable organomegaly. MUSCULOSKELETAL: No joint swelling or deformity. EXTREMITIES: No cyanosis, clubbing, or pedal edema. NEUROLOGICAL: Gross neurological examination did not reveal any focal deficits. SKIN: No rashes. - Labs CBC & Chem 7: 02/12/23 07:37 02/12/23 07:37 Labs: Abnormal Lab Results - Last 24 Hours (Table) 02/11/23 02/11/23 02/11/23 Range/Units 09:51 09:51 09:51 WBC (3.8-10.6) k/uL RBC (3.80-5.40) m/uL Hgb (11.4-16.0) gm/dL Hct (34.0-46.0) % MCV (80.0-100.0) fL Lymphocytes # (1.0-4.8) k/uL VBG pH (7.31-7.41) VBG pCO2 (37-51) mmHg VBG HCO3 (24-28) mmol/L Sodium 135 L (137-145) mmol/L Potassium (3.5-5.1) mmol/L Chloride 93 L (98-107) mmol/L Carbon Dioxide 15 L (22-30) mmol/L Glucose 132 H (74-99) mg/dL Plasma Lactic Acid Anup 10.7 H* (0.7-2.0) mmol/L Calcium (8.4-10.2) mg/dL Magnesium 0.9 L* (1.6-2.3) mg/dL AST 81 H (14-36) U/L Urine Appearance Cloudy H (Clear) Urine Protein 1+ H (Negative) Urine Ketones Trace H (Negative) Urine Blood Small H (Negative) Urine Bilirubin 1+ H (Negative) Ur Leukocyte Esterase Large H (Negative) Urine WBC 45 H (0-5) /hpf Ur Squamous Epith Cells 5 H (0-4) /hpf Urine Bacteria Many H (None) /hpf Urine Mucus Moderate H (None) /hpf 02/11/23 02/11/23 02/12/23 Range/Units 09:51 12:41 07:37 WBC 3.6 L (3.8-10.6) k/uL RBC 2.92 L (3.80-5.40) m/uL Hgb 10.2 L D (11.4-16.0) gm/dL Hct 29.9 L (34.0-46.0) % MCV 102.1 H (80.0-100.0) fL Lymphocytes # 0.8 L (1.0-4.8) k/uL VBG pH 7.53 H (7.31-7.41) VBG pCO2 22 L (37-51) mmHg VBG HCO3 18 L (24-28) mmol/L Sodium (137-145) mmol/L Potassium (3.5-5.1) mmol/L Chloride (98-107) mmol/L Carbon Dioxide (22-30) mmol/L Glucose (74-99) mg/dL Plasma Lactic Acid Anup 3.2 H* (0.7-2.0) mmol/L Calcium (8.4-10.2) mg/dL Magnesium (1.6-2.3) mg/dL AST (14-36) U/L Urine Appearance (Clear) Urine Protein (Negative) Urine Ketones (Negative) Urine Blood (Negative) Urine Bilirubin (Negative) Ur Leukocyte Esterase (Negative) Urine WBC (0-5) /hpf Ur Squamous Epith Cells (0-4) /hpf Urine Bacteria (None) /hpf Urine Mucus (None) /hpf 02/12/23 Range/Units 07:37 WBC (3.8-10.6) k/uL RBC (3.80-5.40) m/uL Hgb (11.4-16.0) gm/dL Hct (34.0-46.0) % MCV (80.0-100.0) fL Lymphocytes # (1.0-4.8) k/uL VBG pH (7.31-7.41) VBG pCO2 (37-51) mmHg VBG HCO3 (24-28) mmol/L Sodium 135 L (137-145) mmol/L Potassium 2.8 L (3.5-5.1) mmol/L Chloride (98-107) mmol/L Carbon Dioxide (22-30) mmol/L Glucose (74-99) mg/dL Plasma Lactic Acid Anup (0.7-2.0) mmol/L Calcium 7.0 L (8.4-10.2) mg/dL Magnesium 1.4 L (1.6-2.3) mg/dL AST (14-36) U/L Urine Appearance (Clear) Urine Protein (Negative) Urine Ketones (Negative) Urine Blood (Negative) Urine Bilirubin (Negative) Ur Leukocyte Esterase (Negative) Urine WBC (0-5) /hpf Ur Squamous Epith Cells (0-4) /hpf Urine Bacteria (None) /hpf Urine Mucus (None) /hpf Assessment and Plan Assessment: 1. Acute metabolic acidosis; likely related to dehydration resulting from nausea and vomiting with poor oral intake is 24 hours - Patient received IV fluid boluses in ED; lactic acid has trended down to 3.2; we will continue to monitor lactic acid levels every 4 hours to normal - Continue with IV fluid hydration with normal saline at rate of 100 mL an hour 2. Critical hypomagnesemia; magnesium level is down to 0.9; supplemented in ED; we will repeat magnesium levels and make further supplementation as needed 3. Alcohol abuse with impending withdrawals; serum alcohol level is less than 10 - Patient will be monitored closely on CIWA protocol; has been placed on IV fluids and thiamine supplement 4. UTI; patient is placed on IV Rocephin 1 g daily; we will monitor CBC, CMP a nd pro-calcitonin; further recommendations on antibiotic therapy pending urine and blood cultures 5. Gastroesophageal reflux disease; Protonix 40 mg IV daily DVT prophylaxis; SCDs/subcu heparin CODE STATUS; full code
[2023-02-12] MEDS: SODIUM CHLORIDE 0.9% 1,000 ML IV SCH (20:40)
[2023-02-13] MEDS: LORazepam 2 MG/ML INJ IV PRN (02:07)
[2023-02-13] MEDS: PANTOPRAZOLE 40 MG/10 ML VIAL IVP SCH (08:58)
[2023-02-13] MEDS: HEPARIN SODIUM,PORCINE 5,000 UNIT/ML 1 ML VIAL SQ SCH (08:59)
[2023-02-13] MEDS: SODIUM CHLORIDE 0.9% 1,000 ML IV SCH (08:59)
[2023-02-13] MEDS: THIAMINE 100 MG TAB PO SCH (08:59)
[2023-02-13 09:08] LABS: Basophils % (A) 0 %; Eosinophils # (A) 0.1 k/uL (0-0.7); Eosinophils % (A) 2 %; HCT 34.4 % (34.0-46.0); HGB 11.5 gm/dL (11.4-16.0); Lymphocytes % (A) 26 %; MCH 35.1 pg (25.0-35.0); MCHC 33.3 g/dL (31.0-37.0); MCV 105.3 fL (80.0-100.0); Macrocytosis Moderate; Mean Platelet Volume 8.3; Monocytes # (A) 0.3 k/uL (0-1.0); Monocytes % (A) 7 %; Neutrophils # (A) 2.3 k/uL (1.3-7.7); Neutrophils % (A) 63 %; Platelet Count 201 k/uL (150-450); RBC 3.27 m/uL (3.80-5.40); RDW 14.1 % (11.5-15.5); WBC 3.7 k/uL (3.8-10.6)
[2023-02-13 09:14] VITALS: RESP 16; TEMP 98.7
[2023-02-13 09:26] LABS: African American GFR (CKD) >90 (>60 ml/min/1.73 sqM); Anion Gap 12 mmol/L; Blood Urea Nitrogen 5 mg/dL (7-17); Calcium 7.4 mg/dL (8.4-10.2); Carbon Dioxide 20 mmol/L (22-30); Chloride 106 mmol/L (98-107); Glucose 98 mg/dL (74-99); Magnesium 1.6 mg/dL (1.6-2.3); Non-African American GFR(CKD) >90 (>60 ml/min/1.73 sqM); Sodium 138 mmol/L (137-145)
[2023-02-13 09:48] LABS: Potassium 3.4 mmol/L (3.5-5.1)
[2023-02-13 12:16] VITALS: BP 108/73; PULSE 90
--- NOTE | 2023-02-13 13:45 | P.DS ---
Providers Date of admission: 02/11/23 13:48 Expected date of discharge: 02/13/23 Attending physician: Katie Larios Primary care physician: Physician Nonstaff Hospital Course: Discharge diagnoses; Acute metabolic acidosis Lactic acidosis Hypokalemia Hypomagnesemia Alcohol abuse UTI Hospital course; 47-year-old female, history of asthma, GERD, migraines, alcohol abuse, presents for evaluation of nausea vomiting. Patient has had poor appetite and poor intake over the past several weeks to months. She has been bedbound secondary to injury to her leg one year ago. She states she has been urinating but her urine is been very dark. She reports significant nausea and vomiting. No abdominal pain. PBC of 8.7, hemoglobin of 13.3 and platelet count of 256, sodium 135, potassium 3.6, BUN/creatinine of 12/0.62, CO2 of 15 and anion gap of 27, and blood glucose of 132, lactic acid is elevated at 10.7, magnesium 0.9, AST elevated at 81, UA is positive for leukocyte esterase, bacteria and WBCs Patient was given again tachycardic upon presentation; received fluid boluses in ED; lactic acid is currently trending down --- Potassium level is down to 2.8 this morning with magnesium somewhat improved at 1.4; we will supplement potassium with IV and oral; 2 g magnesium sulfate IV - Continue to monitor electrolytes closely and supplement as needed - Patient remains on IV Rocephin for UTI; antibiotics are adjusted once culture results are available -- Remains on [facility] protocol 02/13. Patient seen and examined. WBC 3.7, hemoglobin 11.5, platelet count 201, sodium 138, potassium 3.4, BUN 5, creatinine 0.64. Being discharged on oral Ceftin for 2 more days. PHYSICAL EXAMINATION: GENERAL: The patient is alert and oriented x3, not in any acute distress. Well developed, well nourished. HEENT: Pupils are round and equally reacting to light. EOMI. No scleral icterus. No conjunctival pallor. Normocephalic, atraumatic. No pharyngeal erythema. No thyromegaly. CARDIOVASCULAR: S1 and S2 present. No murmurs, rubs, or gallops. PULMONARY: Chest is clear to auscultation, no wheezing or crackles. ABDOMEN: Soft, nontender, nondistended, normoactive bowel sounds. No palpable organomegaly. MUSCULOSKELETAL: No joint swelling or deformity. EXTREMITIES: No cyanosis, clubbing, or pedal edema. NEUROLOGICAL: Gross neurological examination did not reveal any focal deficits. SKIN: No rashes. Dictation was produced using [employer] dictation software. please excuse any grammatical, word or spelling errors. Patient Condition at Discharge: Stable Plan - Discharge Summary New Discharge Prescriptions: New Thiamine [Vitamin B-1] 100 mg PO DAILY 30 Days #30 tab cefUROXime axetiL [Cefuroxime] 500 mg PO BID 2 Days #4 tab Continue Omeprazole Magnesium [PriLOSEC OTC] 20 mg PO DAILY Discharge Medication List Omeprazole Magnesium [PriLOSEC OTC] 20 mg PO DAILY 02/11/23 [History] Thiamine [Vitamin B-1] 100 mg PO DAILY 30 Days #30 tab 02/13/23 [Rx] cefUROXime axetiL [Cefuroxime] 500 mg PO BID 2 Days #4 tab 02/13/23 [Rx] Follow up Appointment(s)/Referral(s): Nonstaff,Physician [Primary Care Provider] - 1-2 days Discharge Disposition: HOME SELF-CARE
== END 2023-02-13 14:28 | disposition home or self-care (01) | DRG 641 ==
LOC: EC 09:02 → 3SCARD 13:48
PROVIDERS: ADMIT Hospitalist; ATTEND Hospitalist
PROC: HZ2ZZZZ Detoxification Services for Substance Abuse Treatment (ICD-10-PCS; principal; 2023-02-11)
DX: E86.0 Dehydration (principal); N39.0 Urinary tract infection, site not specified; E87.21 Acute metabolic acidosis; E83.42 Hypomagnesemia; F17.210 Nicotine dependence, cigarettes, uncomplicated; J30.2 Other seasonal allergic rhinitis; L30.9 Dermatitis, unspecified; G43.909 Migraine, unspecified, not intractable, without status migrainosus; F90.9 Attention-deficit hyperactivity disorder, unspecified type; I83.93 Asymptomatic varicose veins of bilateral lower extremities; J45.909 Unspecified asthma, uncomplicated; K21.9 Gastro-esophageal reflux disease without esophagitis; E87.6 Hypokalemia; H91.90 Unspecified hearing loss, unspecified ear
CPT/HCPCS: 36415; 80048; 80053; 80320; 81001; 82803; 83605; 83690; 83735; 85025; 85610; 85730; 87040; 93005; 96361; 96365; 96366; 96367; 96372; 96375; 96376; 99291

== ENCOUNTER 2023-08-24 19:30 | Inpatient (IN) | payer BC ==
--- NOTE | 2023-08-24 21:07 | CT ---
EXAMINATION TYPE: CT brain wo con CT DLP: 1056.4 mGycm, Automated exposure control for dose reduction was used. DATE OF EXAM: 08/24/2023 8:38 PM COMPARISON: None. CLINICAL INDICATION:Female, 48 years old with history of weakness, ams, weakness TECHNIQUE: Brain: Axial CT images of the brain were obtained with coronal and sagittal reformats created and rev iewed. Contrast used: None. Oral contrast used: None. FINDINGS: Extra-axial spaces: No abnormal extra-axial fluid collections. Ventricular system: Within normal limits. Cerebral parenchyma: No increased attenuation to suggest acute intraparenchymal hemorrhage. The gra y-white matter interface appears maintained. No significant atrophy. White matter unremarkable by C T. Cerebellum: No acute abnormality. Mass effect: No evidence of mass effect or midline shift. Intracranial vasculature: Unremarkable Soft tissues: No acute or concerning abnormality. Visualized orbits: Orbital contents appear grossly intact. Calvarium/osseous structures: No evidence of calvarial fracture. Paranasal sinuses and mastoid air cells: Mild mucosal thickening right maxillary sinus. No significan t fluid. Mastoid air cells are clear. Partially seen nasal septal deviation towards the right anterio rly. MRI is more sensitive for detecting acute processes such as infarct, and may be considered if clinica lly warranted. IMPRESSION: No acute intracranial CT abnormality.
[2023-08-24] MEDS: SODIUM CHLORIDE 0.9% 1,000 ML IV ONE (21:23)
--- NOTE | 2023-08-24 21:28 | ED ---
Weakness HPI - General Chief complaint: Weakness Stated complaint: DEPRESSION,WEAKNESS Time Seen by Provider: 08/24/23 19:50 Source: patient, EMS Mode of arrival: EMS Limitations: no limitations - History of Present Illness Initial comments: 48-year-old female with history of alcohol use disorder, asthma, GERD presenting with chief complaint of weakness. Patient feels generally weak, she states that on Monday she lost feeling in her legs. She was having no back pain. She states that ever since then she has been scared to attempt to walk so she has b een crawling around her home. She has swelling to the bilateral legs. She admits to epigastric pain. Patient normally drinks about a pint of liquor per day, her last drink was 2 weeks ago. She has significant abdominal distention. She denies nausea, vomiting, diarrhea. No chest pain. At times she does get a bit short of breath. No fevers. Patient is a somewhat poor historian and has difficulty completely answering my questions or providing details. - Related Data Home Medications Medication Instructions Recorded Confirmed Omeprazole Magnesium [PriLOSEC OTC] 40 mg PO DAILY 02/11/23 08/24/23 Levothyroxine Sodium [Synthroid] 50 mcg PO DAILY 08/24/23 08/24/23 Allergies Allergy/AdvReac Type Severity Reaction Status Date / Time No Known Allergies Allergy Verified 08/24/23 21:02 Review of Systems ROS Statement: Those systems with pertinent positive or pertinent negative responses have been documented in the HPI. ROS Other: All systems not noted in ROS Statement are negative. Past Medical History Past Medical History: Asthma, GERD/Reflux, Hearing Disorder / Deafness, Skin Disorder Additional Past Medical History / Comment(s): seasonal allergies, heart murmur,. exercise induced asthma, bilat varicose veins, migraines, occasional edema lower legs, eczema, periorbital dermatitis History of Any Multi-Drug Resistant Organisms: None Reported Past Surgical History: Orthopedic Surgery Additional Past Surgical History / Comment(s): bilat varicose vein sx, EGD, sinus surg., ORIF right ankle, arthroscopic left knee surg. 3 weeks ago @OA Past Anesthesia/Blood Transfusion Reactions: Previous Problems w/ Anesthesia, Motion Sickness, Postoperative Nausea & Vomiting (PONV) Additional Past Anesthesia/Blood Transfusion Reaction / Comment(s): slow to wake up after sinus sx years ago, PONV after knee surg. 3 weeks ago-normally doesn't have that problem Past Psychological History: ADD/ADHD Smoking Status: Second hand smoke exposure Past Alcohol Use History: Abuse, Heavy Past Drug Use History: Marijuana - Past Family History Mother Family Medical History: No Reported History General Exam Limitations: no limitations General appearance: alert, in no apparent distress Head exam: Present: atraumatic, normocephalic Eye exam: Present: PERRL, EOMI, scleral icterus Neck exam: Present: normal inspection Respiratory exam: Present: normal lung sounds bilaterally. Absent: respiratory distress, wheezes, rales, rhonchi, stridor Cardiovascular Exam: Present: regular rate, normal rhythm, normal heart sounds. Absent: systolic murmur, diastolic murmur, rubs, gallop, clicks GI/Abdominal exam: Present: distended, tenderness. Absent: guarding, rebound, rigid Extremities exam: Present: full ROM, normal capillary refill, pedal edema Neurological exam: Present: alert, oriented X3 Psychiatric exam: Present: normal affect, normal mood Skin exam: Present: warm, dry Course Vital Signs 08/24/23 08/24/23 08/24/23 19:41 21:40 22:57 Temperature 98.6 F Pulse Rate 117 H 116 H 113 H Respiratory 18 20 20 Rate Blood Pressure 108/46 91/57 92/60 O2 Sat by Pulse 98 97 Oximetry 08/24/23 23:44 Temperature 98.0 F Pulse Rate 114 H Respiratory 18 Rate Blood Pressure 78/58 O2 Sat by Pulse 94 L Oximetry Medical Decision Making - Medical Decision Making EKG shows sinus tachycardia ventricular rate 113. WV interval 138. QRS 91. QT 354. QTc 421. Was pt. sent in by a medical professional or institution (, PA, HEEL VARNISHER, urgent care, hospital, or fci...) When possible be specific @ -No Did you speak to anyone other than the patient for history (EMS, parent, family, police, friend...)? What history was obtained from this source @ -No Did you review nursing and triage notes (agree or disagree)? Why? @ -I reviewed and agree with nursing and triage notes Were old charts reviewed (outside hosp., previous admission, EMS record, old EKG, old radiological studies, urgent care reports/EKG's, fci records)? Report findings @ -No old charts were reviewed Differential Diagnosis (chest pain, altered mental status, abdominal pain women, abdominal pain men, vaginal bleeding, weakness, fever, dyspnea, syncope, headache, dizziness, GI bleed, back pain, seizure, CVA, palpatations, mental health, musculoskeletal)? @ -[facility] Differential Weakness: Hypoglycemia, shock, sepsis, hyponatremia, anemia, infection, DC, ETOH, adverse medicine reaction, overdose, stroke. ... This is not meant to be an all- inclusive list EKG interpreted by me (3pts min.). @ -As above X-rays interpreted by me (1pt min.). @ -Chest x-ray shows no acute cardiopulmonary abnormality CT interpreted by me (1pt min.). @ -Brain CT shows no acute intracranial process CT abdomen and pelvis shows markedly enlarged liver, with severely heterogenous appearance of the parenchyma as well as a moderate to large volume of ascites. Correlate for hepatitis or other acute hepatic disease. Anasarca and ascites, suggesting third spacing of fluids. No evidence of an acute obstructive process or free air in the abdomen or pelvis CT lumbar spine shows no evidence of acute lumbar spine fracture, or traumatic malalignment. Multilevel spondylosis, greatest at L4-L5 and L5-S1 U/S interpreted by me (1pt. min.). @ -None done What testing was considered but not performed or refused? (CT, X-rays, U/S, labs)? Why? @ -None What meds were considered but not given or refused? Why? @ -None Did you discuss the management of the patient with other professionals (professionals i.e. , PA, HEEL VARNISHER, lab, RT, psych nurse, social work msw, cutting supervisor, teacher, combat systems officer, rn case mgr)? Give summary @ -I spoke with Dr. Tang from [facility] who accepted admission, requested nephrology consult. I spoke with Dr. Sawyer of nephrology, he advised starting a bicarb drip at 75 mL/h, midodrine 5 mg 3 times daily, and Small catheter Was smoking cessation discussed for >3mins.? @ -No Was critical care preformed (if so, how long)? @ -yes, renal failure requiring bicarb, 31 mins Were there social determinants of health that impacted care today? How? (Homelessness, low income, unemployed, alcoholism, drug addiction, transportation, low edu. Level, literacy, decrease access to med. care, prison, rehab)? @ -No Was there de-escalation of care discussed even if they declined (Discuss DNR or withdrawal of care, Hospice)? DNR status @ -No What co-morbidities impacted this encounter? (DM, HTN, Smoking, COPD, CAD, Cancer, CVA, ARF, Chemo, Hep., AIDS, mental health diagnosis, sleep apnea, morbid obesity)? @ -Alcohol use disorder, liver failure, kidney failure Was patient admitted / discharged? Hospital course, mention meds given and route, prescriptions, significant lab abnormalities, going to OR and other pertinent info. @ -48-year-old female with history of alcohol use disorder presenting with chief complaint of general weakness and "pain all over". Patient states that on Monday she lost feeling in her legs and since then she has been crawling around her home to get around. She still has full range of motion of the legs during my exam. Patient is tachycardic with soft blood pressures, she is given a total of 1.5 L fluid bolus. Lab work reveals multi-organ failure and metabolic acidosis. Bilirubin 6.8 AST 285 ALT 72 alkaline phosphatase 236. BUN 37 creatinine 7.77 GFR 6. Glucose 65, patient is given 1 amp of D50. Sodium 127 potassium 5.2, however the sample is hemolyzed, chloride 95 CO2 [address] anion gap 17[address] Abdom[address] CT shows changes consistent with the patient's chronic hepatitis. Of note CTs were obtained with contrast because patient did not previously meet the criteria of the CT department to hold studies with contrast prior to labs. P atient is started on CIWA protocol. She is started on magnesium replacement. I spoke with route jumper Dr. Aranda who advised starting bicarb drip at 75 mL/h, midodrine 5 mg 3 times daily, and Small catheter. Patient is educated on today's findings. She will be admitted with nephrology consult. She is agreeable with this plan. I discussed this case with my attending Dr. Walker Undiagnosed new problem with uncertain prognosis? @ -Renal failure Drug Therapy requiring intensive monitoring for toxicity (Heparin, Nitro, Insulin, Cardizem)? @ -No Were any procedures done? @ -No Diagnosis/symptom? @ -Renal failure, metabolic acidosis Acute, or Chronic, or Acute on Chronic? @ -Acute Uncomplicated (without systemic symptoms) or Complicated (systemic symptoms)? @ -Complicated Side effects of treatment? @ -No Exacerbation, Progression, or Severe Exacerbation? @ -No Poses a threat to life or bodily function? How? (Chest pain, USA, DC, pneumonia, PE, COPD, DKA, ARF, appy, cholecystitis, CVA, Diverticulitis, Homicidal, Suicidal, threat to staff... and all critical care pts) @ -Yes Diagnosis/symptom? @Alcoholic hepatitis, alcohol use disorder Acute, or Chronic, or Acute on Chronic? @Acute on chronic Uncomplicated (without systemic symptoms) or Complicated (systemic symptoms)? @Complicated Side effects of treatment? @None Exacerbation, Progression, or Severe Exacerbation] @No Poses a threat to life or bodily function? @Yes - Lab Data Result diagrams: 08/24/23 20:42 08/24/23 20:42 Lab Results 08/24/23 08/24/23 08/24/23 Range/Units 20:42 20:42 20:42 WBC 19.6 H (3.8-10.6) k/uL RBC 2.83 L (3.80-5.40) m/uL Hgb 10.6 L (11.4-16.0) gm/dL Hct 33.5 L (34.0-46.0) % MCV 118.6 H (80.0-100.0) fL MCH 37.6 H (25.0-35.0) pg MCHC 31.7 (31.0-37.0) g/dL RDW 17.5 H (11.5-15.5) % Plt Count 146 L (150-450) k/uL MPV 13.2 Hypochromasia Slight Anisocytosis Slight Macrocytosis Marked A PT 21.2 H (10.0-12.5) sec INR 2.1 H (<1.2) APTT 33.8 H (22.0-30.0) sec Sodium 127 L (137-145) mmol/L Potassium 5.2 H (3.5-5.1) mmol/L Chloride 95 L (98-107) mmol/L Carbon Dioxide 15 L (22-30) mmol/L Anion Gap 17 mmol/L BUN 37 H (7-17) mg/dL Creatinine 7.77 H* (0.52-1.04) mg/dL Est GFR (CKD-EPI)AfAm 6 (>60 ml/min/1.73 sqM) Est GFR (CKD-EPI)NonAf 6 (>60 ml/min/1.73 sqM) Glucose 65 L (74-99) mg/dL Lactic Ac Sepsis Rflx Plasma Lactic Acid Anup (0.7-2.0) mmol/L Calcium 6.9 L (8.4-10.2) mg/dL Magnesium 1.1 L (1.6-2.3) mg/dL Total Bilirubin 6.8 H (0.2-1.3) mg/dL AST 285 H (14-36) U/L ALT 72 H (4-34) U/L Alkaline Phosphatase 236 H (38-126) U/L Creatine Kinase (30-135) U/L NT-Pro-B Natriuret Pep 4070 pg/mL Total Protein 5.5 L (6.3-8.2) g/dL Albumin 2.4 L (3.5-5.0) g/dL Amylase 41 (30-110) U/L Lipase 97 (23-300) U/L 08/24/23 08/24/23 08/24/23 Range/Units 20:42 20:42 22:06 WBC (3.8-10.6) k/uL RBC (3.80-5.40) m/uL Hgb (11.4-16.0) gm/dL Hct (34.0-46.0) % MCV (80.0-100.0) fL MCH (25.0-35.0) pg MCHC (31.0-37.0) g/dL RDW (11.5-15.5) % Plt Count (150-450) k/uL MPV Hypochromasia Anisocytosis Macrocytosis PT (10.0-12.5) sec INR (<1.2) APTT (22.0-30.0) sec Sodium (137-145) mmol/L Potassium (3.5-5.1) mmol/L Chloride (98-107) mmol/L Carbon Dioxide (22-30) mmol/L Anion Gap mmol/L BUN (7-17) mg/dL Creatinine (0.52-1.04) mg/dL Est GFR (CKD-EPI)AfAm (>60 ml/min/1.73 sqM) Est GFR (CKD-EPI)NonAf (>60 ml/min/1.73 sqM) Glucose (74-99) mg/dL Lactic Ac Sepsis Rflx Y Plasma Lactic Acid Anup 3.2 H* (0.7-2.0) mmol/L Calcium (8.4-10.2) mg/dL Magnesium (1.6-2.3) mg/dL Total Bilirubin (0.2-1.3) mg/dL AST (14-36) U/L ALT (4-34) U/L Alkaline Phosphatase (38-126) U/L Creatine Kinase 104 (30-135) U/L NT-Pro-B Natriuret Pep pg/mL Total Protein (6.3-8.2) g/dL Albumin (3.5-5.0) g/dL Amylase (30-110) U/L Lipase (23-300) U/L Disposition Clinical Impression: Renal failure, Hepatitis, Alcohol use disorder, Lactic acidosis, Metabolic acidosis Disposition: ADMITTED IP TO THIS HOSP Condition: Serious Time of Disposition: 22:38
[2023-08-24 21:49] LABS: ALT 72 U/L (4-34); African American GFR (CKD) 6 (>60 ml/min/1.73 sqM); Amylase 41 U/L (30-110); Anion Gap 17 mmol/L; Blood Urea Nitrogen 37 mg/dL (7-17); Calcium 6.9 mg/dL (8.4-10.2); Carbon Dioxide 15 mmol/L (22-30); Chloride 95 mmol/L (98-107); Glucose 65 mg/dL (74-99); Lipase 97 U/L (23-300); Non-African American GFR(CKD) 6 (>60 ml/min/1.73 sqM); Sodium 127 mmol/L (137-145)
[2023-08-24 21:55] LABS: INR 2.1 (<1.2); Partial Thromboplastin Time 33.8 sec (22.0-30.0); Prothrombin Time 21.2 sec (10.0-12.5)
[2023-08-24 21:57] LABS: NT-Pro-B-Type Natriuretic Pept 4070 pg/mL
--- NOTE | 2023-08-24 21:59 | CT ---
EXAMINATION TYPE: CT abdomen pelvis w con CT DLP: 3292.4 mGycm, Automated exposure control for dose reduction was used. DATE OF EXAM: 08/24/2023 8:42 PM COMPARISON: None. CLINICAL INDICATION:Female, 48 years old with history of abdominal pain; ams, weakness, abdominal georgette n TECHNIQUE: Axial CT of the abdomen and pelvis. Sagittal and coronal reformats were created on a [employer] workstation. Contrast used:80 mL of Isovue 300 with IV Contrast, (none if empty) Oral contrast used: without Oral Contrast (none if empty) FINDINGS: LOWER CHEST: Mild subsegmental atelectasis in the lung bases otherwise clear. Heart is mildly enlarge d. ABDOMEN LIVER: Severely heterogeneous and overall of diminished attenuation. The liver is significantly enlar ged measuring 28.6 cm in greatest craniocaudal dimension. No masses are visible. GALLBLADDER AND BILE DUCTS: Gallbladder and contents appear relatively high homogeneous attenuation, could represent vicarious excretion of contrast, sludge, or other abnormality. No significant biliary dilatation is suggested. PANCREAS: Unremarkable. SPLEEN: Unremarkable. ADRENAL GLANDS: Mildly thickened, may be seen with hyperplasia.. KIDNEYS AND URETERS: Kidneys enhance symmetrically. No evidence of hydronephrosis or visible renal ca lculus. The ureters are unremarkable. Little change in the appearance on delayed imaging without cont rast seen in the ureters, correlate for impaired renal function. PELVIS BLADDER: Almost completely decompressed and not well assessed REPRODUCTIVE: Uterus contains an IUD which appears in the usual position. The adnexal regions are uma ssly unremarkable but the ovaries are not clearly seen. ABDOMEN & PELVIS STOMACH AND BOWEL: Stomach and small bowel are nondistended, no evidence of obstruction. The append ix is not seen with certainty but there is no inflammatory process seen in the pericecal region. Fat ty infiltration of the ileocecal valve. Mild to moderate stool throughout the colon without focal acu te abnormality demonstrated. There are several sigmoid region diverticula without clear evidence of d iverticulitis. PERITONEUM/RETROPERITONEUM: No evidence of free air. There is a moderate to large volume of abdomin al pelvic ascites. Mesenteric edema is present. VASCULATURE: Mild atherosclerotic calcification of the abdominal aorta. No evidence of aortic aneurys m. Portal vein appears to be enhancing, as does the splenic and superior mesenteric vein. There is a prominent collateral vein which appears to arise from the pelvis and joins with the SMV before it me ets the splenic vein. LYMPH NODES: A few mildly prominent celiac region lymph nodes towards the liver measure up to 15 mm i n short axis, nonspecific may be reactive. Otherwise no bulky adenopathy is seen. SOFT TISSUE/ABDOMINAL WALL: Moderate diffuse body wall edema compatible with anasarca. MUSCULOSKELETAL: No acute osseous abnormality. Mild/moderate degenerative changes, greatest in the lo wer lumbar spine where there is grade 1 anterolisthesis of L4 on L5. In addition to disc marginal ost eophytes and facet arthropathy there is moderate to severe spinal canal stenosis and moderate neural foraminal stenoses at L4-L5 as well as moderate spinal canal stenosis and bilateral foraminal stenosi s L5-S1. IMPRESSION: 1. Markedly enlarged liver, with severely heterogeneous appearance of the parenchyma as well as a mo derate to large volume of ascites. Correlate for hepatitis or other acute hepatic disease. 2. Anasarca and ascites, suggesting third spacing of fluids. 3. No evidence of an acute obstructive process or free air in the abdomen or pelvis.
[2023-08-24 22:03] LABS: AST 285 U/L (14-36); Albumin 2.4 g/dL (3.5-5.0); Alkaline Phosphatase 236 U/L (38-126); Magnesium 1.1 mg/dL (1.6-2.3); Potassium 5.2 mmol/L (3.5-5.1); Total Bilirubin 6.8 mg/dL (0.2-1.3); Total Protein 5.5 g/dL (6.3-8.2)
--- NOTE | 2023-08-24 22:07 | CT ---
EXAMINATION TYPE: CT lumbar spine w con CT DLP: 3292.4 mGycm, Automated exposure control for dose reduction was used. DATE OF EXAM: 08/24/2023 8:42 PM COMPARISON: Same day CT abdomen and pelvis. CLINICAL INDICATION:Female, 48 years old with history of difficulty walking; PHH, ams, weakness, abdo eliot pain TECHNIQUE: CT of the lumbar spine was performed without additional contrast. Multiplanar soft tissue and bone wi ndows were obtained and reviewed. . Contrast used: See CT abdomen report FINDINGS: Alignment: There are 5 lumbar type vertebral bodies with normal height. Alignment is normal except fo r a 4.5 mm, grade 1 approaching grade 2, degenerative anterolisthesis L4 on L5. Bone: No evidence of fracture is identified. No destructive bone lesion. Disc space narrowing at L5- S1 with some heterogeneous endplate sclerosis. Mild disc space narrowing L4-L5. Discs: T12-L1: No significant spinal canal or neural foraminal stenosis. L1-L2: No spinal canal or neural foraminal stenosis is identified. L2-L3: No spinal canal or neural foraminal stenosis is identified. L3-L4: Mild posterior disc bulge. Mild facet arthrosis. Mild canal and foraminal stenosis. L4-L5: Anterolisthesis is accompanied by unroofing of the intervertebral disc, there is moderate to s evere facet joint hypertrophy and ligamentum flavum thickening, causing moderate to severe circumfere ntial spinal canal stenosis and moderate neural foraminal stenoses. L5-S1: Posterior disc osteophyte complex and moderate facet arthrosis results in moderate spinal sindhu l and bilateral neuroforaminal stenoses. Other: Please refer to separate CT abdomen and pelvis report for further description of findings. IMPRESSION: 1. No evidence of acute lumbar spine fracture, or traumatic malalignment. 2. Multilevel spondylosis, greatest at L4-L5 and L5-S1, as detailed above.
--- NOTE | 2023-08-24 22:09 | XR ---
EXAMINATION TYPE: XR chest 2V DATE OF EXAM: 08/24/2023 8:36 PM CLINICAL INDICATION:Female, 48 years old with history of Weakness; PHH COMPARISON: None TECHNIQUE: XR chest 2V. Frontal and lateral views of the chest.. FINDINGS: Lines/Tubes/Devices: No indwelling lines are seen. Extrinsic densities are present. Heart/mediastinum: Heart appears mildly enlarged. Mediastinum appears normal. Pulmonary vascularity: Not increased, Lungs/Pleura: There is no evidence of pleural effusion, focal consolidation, or pneumothorax. Musculoskeletal: No acute osseous abnormality demonstrated in the limits of the exam. Mild elevation of the right hemidiaphragm. Other findings: None. IMPRESSION: No acute cardiopulmonary abnormality.
[2023-08-24] MEDS ORDERED: Magnesium Replacement Protocol 1 EACH MISC MISCELLANE PRN (22:14)
[2023-08-24 22:22] LABS: Anisocytosis Slight; HCT 33.5 % (34.0-46.0); HGB 10.6 gm/dL (11.4-16.0); Hypochromasia Slight; MCH 37.6 pg (25.0-35.0); MCHC 31.7 g/dL (31.0-37.0); MCV 118.6 fL (80.0-100.0); Macrocytosis Marked; Mean Platelet Volume 13.2; RBC 2.83 m/uL (3.80-5.40); RDW 17.5 % (11.5-15.5)
[2023-08-24] MEDS ORDERED: NALOXONE 0.4 MG/ML 1 ML VIAL IV PRN (22:35)
[2023-08-24] MEDS: DEXTROSE 50% SYRINGE 50 ML IVP STA (22:51)
[2023-08-24] MEDS: MAGNESIUM SULFATE-D5W PMX 1 GM in DEXTROSE/WATER 1 100ML.BAG IVPB SCH (22:55)
[2023-08-24] MEDS: SODIUM CHLORIDE 0.9% 1,000 ML IV SCH (23:22)
[2023-08-24 23:54] LABS: Band Neutrophils % 4 %; Eosinophils # (M) 0.19 k/uL (0-0.7); Metamyelocytes # (M) 0.38 k/uL (0); Metamyelocytes % 2 %; Monocytes # (M) 1.34 k/uL (0-1.0); Neutrophils % (M) 76 %; Nucleated Red Blood Cells 2 /100 WBC (0-0); Total Cells Counted 200; WBC 19.2 k/uL (3.8-10.6)
[2023-08-24 23:56] LABS: Large Platelets Present
[2023-08-25 00:05] LABS: Howell-Jolly Bodies Present
[2023-08-25] MEDS ORDERED: LORazepam 2 MG/ML INJ IV PRN ×2 (00:05)
[2023-08-25 00:08] LABS: Polychromasia Present
[2023-08-25] MEDS: MIDODRINE 5 MG TAB PO SCH ×2 (00:11→12:27)
[2023-08-25] MEDS: DEXTROSE 5% IN WATER 1,000 ML with SODIUM BICARB (1 MEQ/ML) 150 ML IV SCH (00:15)
[2023-08-25] MEDS: SODIUM CHLORIDE 0.9% 1,000 ML IV SCH (00:20)
[2023-08-25] MEDS: THIAMINE 100 MG/ML 2 ML VIAL IM ONE (00:20)
[2023-08-25] MEDS: SODIUM CHLORIDE 0.9% 500 ML 500 ML IV ONE (00:21)
[2023-08-25 00:27] LABS: Poikilocytosis (M) Present
[2023-08-25] MEDS: MORPHINE SULFATE 2 MG/ML SYRINGE IVP STA (07:12)
--- NOTE | 2023-08-25 08:25 | US ---
EXAMINATION TYPE: US kidneys/renal and bladder DATE OF EXAM: 08/25/2023 COMPARISON: NONE CLINICAL INDICATION: Female, 48 years old with history of quan; Hx Alcoholism EXAM MEASUREMENTS: Right Kidney: 10.7 x 5.8 x 5.9 cm Left Kidney: 11.7 x 5.9 x 6.3 cm Post Void Residual Volume: NA mL Right Kidney: No hydronephrosis or masses seen Left Kidney: No hydronephrosis or masses seen Bladder: Not able to assess Bilateral Jets seen: Not able to assess Normal Post Void Residual: NA There is no evidence for hydronephrosis at this point in time. No nephrolithiasis is seen. No sarai s are identified. Fluid seen all four quadrants, attenuating liver, enlarged spleen. IMPRESSION: Four-quadrant ascites as well as splenomegaly and hepatic steatosis.
[2023-08-25 08:32] LABS: ALT 68 U/L (4-34); AST 235 U/L (14-36); African American GFR (CKD) 6 (>60 ml/min/1.73 sqM); Albumin 2.2 g/dL (3.5-5.0); Alkaline Phosphatase 264 U/L (38-126); Anion Gap 16 mmol/L; Blood Urea Nitrogen 36 mg/dL (7-17); Calcium 6.6 mg/dL (8.4-10.2); Carbon Dioxide 16 mmol/L (22-30); Chloride 97 mmol/L (98-107); Glucose 109 mg/dL (74-99); Non-African American GFR(CKD) 6 (>60 ml/min/1.73 sqM); Phosphorus 2.4 mg/dL (2.5-4.5); Potassium 4.1 mmol/L (3.5-5.1); Sodium 129 mmol/L (137-145); Total Bilirubin 6.6 mg/dL (0.2-1.3); Total Protein 5.2 g/dL (6.3-8.2)
[2023-08-25] MEDS ORDERED: MIDODRINE 5 MG TAB PO SCH (09:00)
[2023-08-25] MEDS: MIDODRINE 5 MG TAB PO STA (11:15)
--- NOTE | 2023-08-25 11:39 | P.NPCON ---
History of Present Illness - Reason for Consult acute renal failure - History of Present Illness Reason for consultation: Acute kidney injury History of present illness: Patient is a 48-year-old female seen in renal consultation for acute kidney injury. Creatinine 7.7 yesterday and today. Creatinine near 0.6-0.7 in February 2023. Patient came to the hospital due to generalized weakness. Patient states she was unable to stand on her legs. She denies falling or any syncopal episodes. Patient does have history of alcohol abuse and states she quit drinking alcohol about 2 weeks ago. Patient states she took significant amount of Aleve in the past but has not been taking it recently. She denies history of diabetes. Denies history of coronary artery disease. Patient states she has noticed edema in her legs and also has abdominal distention. She denies vomiting or diarrhea. Denies chest pain or shortness of breath. Small catheter was placed on admission and urine output has been low. Patient received IV fluids overnight with no improvement in renal function. Vital signs are stable. General: No acute distress. HEENT: Head exam is unremarkable. LUNGS: No audible rhonchi or wheezes. HEART: Rate and Rhythm are regular. ABDOMEN: Distention noted. EXTREMITITES: 1+ edema. Past Medical History Past Medical History: Asthma, GERD/Reflux, Hearing Disorder / Deafness, Skin Disorder Additional Past Medical History / Comment(s): seasonal allergies, heart murmur,. exercise induced asthma, bilat varicose veins, migraines, occasional edema lower legs, eczema, periorbital dermatitis History of Any Multi-Drug Resistant Organisms: None Reported Past Surgical History: Orthopedic Surgery Additional Past Surgical History / Comment(s): bilat varicose vein sx, EGD, sinus surg., ORIF right ankle, arthroscopic left knee surg. 3 weeks ago @[facility] Past Anesthesia/Blood Transfusion Reactions: Previous Problems w/ Anesthesia, Motion Sickness, Postoperative Nausea & Vomiting (PONV) Additional Past Anesthesia/Blood Transfusion Reaction / Comment(s): slow to wake up after sinus sx years ago, PONV after knee surg. 3 weeks ago-normally doesn't have that problem Past Psychological History: ADD/ADHD Smoking Status: Second hand smoke exposure Past Alcohol Use History: Abuse, Heavy Past Drug Use History: Marijuana - Past Family History Mother Family Medical History: No Reported History Medications and Allergies Home Medications Medication Instructions Recorded Confirmed Type Omeprazole Magnesium [PriLOSEC OTC] 40 mg PO DAILY 02/11/23 08/24/23 History Levothyroxine Sodium [Synthroid] 50 mcg PO DAILY 08/24/23 08/24/23 History Allergies Allergy/AdvReac Type Severity Reaction Status Date / Time No Known Allergies Allergy Verified 08/24/23 21:02 Physical Exam Vitals: Vital Signs Temp Pulse Resp BP Pulse Ox 08/25/23 11:22 110 H 20 98/57 97 08/25/23 09:18 111 H 20 93/67 92 L 08/25/23 07:36 112 H 20 91/65 91 L 08/25/23 06:30 111 H 20 97/75 92 L 08/25/23 06:00 108 H 15 87/40 94 L 08/25/23 05:30 109 H 20 107/66 93 L 08/25/23 05:00 114 H 17 91/48 94 L 08/25/23 04:30 105 H 19 84/41 08/25/23 04:03 111 H 20 83/65 97 08/25/23 04:00 110 H 16 97/53 93 L 08/25/23 03:30 105 H 16 88/47 95 08/25/23 03:00 112 H 12 81/57 94 L 08/25/23 02:30 108 H 15 106/63 93 L 08/25/23 02:00 106 H 16 83/66 92 L 08/25/23 01:30 112 H 19 119/75 94 L 08/25/23 01:00 120 H 20 97/60 95 08/25/23 00:30 114 H 22 99/75 94 L 08/25/23 00:00 120 H 21 78/58 94 L 08/24/23 23:44 98.0 F 114 H 18 78/58 94 L 08/24/23 23:39 116 H 22 142/102 94 L 08/24/23 23:06 116 H 20 92/60 08/24/23 22:57 113 H 20 92/60 08/24/23 21:40 116 H 20 91/57 97 08/24/23 19:41 98.6 F 117 H 18 108/46 98 Intake and Output 08/24/23 08/25/23 08/25/23 22:59 06:59 14:59 Other: Weight 68.039 kg Results - Lab Results Most recent lab results Calcium 6.6 mg/dL (8.4-10.2) L 08/25/23 07:38 Phosphorus 2.4 mg/dL (2.5-4.5) L 08/25/23 07:38 Magnesium 2.0 mg/dL (1.6-2.3) 08/25/23 07:38 08/24/23 20:42 08/25/23 07:38 Assessment and Plan Plan: Assessment: 1. Acute kidney injury secondary to ATN secondary to hypotension. Also concern for hepatorenal syndrome. Creatinine 7.7. Creatinine 0.6-0.7 in February 2023. No hydronephrosis noted on CAT scan. 2. Hypervolemic hyponatremia. 3. Volume overload with ascites. 4. Metabolic acidosis secondary to acute kidney injury and lactic acidosis. 5. Alcohol abuse. 6. Liver cirrhosis. 7. Hypomagnesemia from poor intake and alcohol abuse. Replaced. Better. Plan: Decrease rate of bicarb drip to 50 cc an hour. Discontinue normal saline. Scheduled for paracentesis. 25 g IV albumin pre and post paracentesis. Add IV Lasix 60 mg twice daily. Maintain midodrine. Avoid nephrotoxins. With significant acute kidney injury, low urine output and persistent acidosis, initiate renal replacement therapy. Plan for first event of hemodialysis today and second treatment tomorrow. Thank you for the consultation. I will continue to follow the patient with you during her hospital stay.
[2023-08-25] MEDS: FUROSEMIDE 10 MG/ML 10 ML VIAL IV SCH (12:27)
--- NOTE | 2023-08-25 12:43 | P.HPIM ---
History of Present Illness H&P Date: 08/25/23 Chief Complaint: Weak This is a 48-year-old patient, follows with Dr. Zulema Domínguez. Chronic stable medical conditions include exercise-induced asthma, bilateral varicose veins, migraines, GERD. She presented to the ER last night. Feeling weak. Patient states for last 2 years she has been having numbness both in the distal legs and both the arms. Patient been drinking vodka for many years up till about 2 weeks ago. Says about half a pint of vodka. No fever chills no obvious diarrhea vomiting. Tired. Because of weakness she has had fallen. She did have [facility] ankle [facility] Dr. Fernandez Review of systems: GEN.: Tired EYES: [Jaundiced HEENT: None NECK: None RESPIRATORY: None CARDIOVASCULAR: None GASTROINTESTINAL: None GENITOURINARY: None MUSCULOSKELETAL: Joint pains LYMPHATICS: None HEMATOLOGICAL: None PSYCHIATRY: None NEUROLOGICAL: Numbness in hand and feet e Social history: Lives with her . Drinking about half a pint of alcohol for several years. Vodka. Last drink 2 weeks ago. Physical examination: VITAL SIGNS: 98.6, 117, 18, 108/46, 98% room air GENERAL: BMI 25.7, reclining in bed anxious appearing. EYES: Pupils equal. Conjunctiva icterus l. HEENT: [External appearance of nose and ears normal, oral cavity grossly normal. NECK: JVD not raised; masses not palpable. HEART: First and second heart sounds are normal; some edema. LUNGS: Respiratory rate normal; clear to auscultation. ABDOMEN: Soft, nontender, liver spleen not palpable, no masses palpable distended. PSYCH: [Alert and oriented x3; mood and affect anxious. MUSCULOSKELETAL:No Clubbing/cyanosis;muscles-grossly intact NEUROLOGICAL: Cranial nerves grossly intact; no facial asymmetry, power and sensation decreased peripherally. LYMPHATICS: No lymph nodes palpable in the axilla and neck INVESTIGATIONS, reviewed in the clinical context: August 24: Sodium 129 potassium 4.1 BUN 36 creatinine 7.7 lactic acid 2.7 calcium 6.6 phosphorus 2.4 total bilirubin 6.6 AST 235 ALT 68 alkaline phosphatase 264 albumin 2.2 August 23: White count 19.2 hemoglobin 10.6 pro time 21.2 sodium 127 potassium 5.2 BUN 37 creatinine 7.77 amylase 41 lipase 97 EKG tracing personally reviewed by me-sinus tachycardia Renal ultrasound: No hydronephrosis. Fluids in all 4 quadrants. Splenomegaly. Chest x-ray film personally reviewed by me-cardiomegaly. Some venous prominence Lumbar spine CTs: Multilevel spondylosis. No fracture reported CT abdomen pelvis: Markedly enlarged liver with severe heterogeneous parenchyma moderate to large volume of ascites. Assessment plan: -Acute kidney injury, likely ATN. Probable hepatorenal component. Current creatinine is 7.77. Creatinine in February 13, 2023 was 0.64 Strict I's and O's. Nephrology consulted. Probably need dialysis -Alcohol use disorder Thiamine. Multivitamin -Alcoholic hepatitis GI service normal [facility]. Follow-up with Dr. Jimmy Meyer outpatient -Hyponatremia likely hypoosmolar -Metabolic acidosis from renal failure Sodium bicarbonate drip -Hypoalbuminemia, likely liver disease rather advanced. -Hypocoagulable state from liver disease Add vitamin K -Full code Discussed with patient. Nephrology consulted. GI services not available in the hospital. Past Medical History Past Medical History: Asthma, GERD/Reflux, Hearing Disorder / Deafness, Skin Disorder Additional Past Medical History / Comment(s): seasonal allergies, heart murmur,. exercise induced asthma, bilat varicose veins, migraines, occasional edema lower legs, eczema, periorbital dermatitis History of Any Multi-Drug Resistant Organisms: None Reported Past Surgical History: Orthopedic Surgery Additional Past Surgical History / Comment(s): bilat varicose vein sx, EGD, sinus surg., ORIF right ankle, arthroscopic left knee surg. 3 weeks ago @[facility] Past Anesthesia/Blood Transfusion Reactions: Previous Problems w/ Anesthesia, Motion Sickness, Postoperative Nausea & Vomiting (PONV) Additional Past Anesthesia/Blood Transfusion Reaction / Comment(s): slow to wake up after sinus sx years ago, PONV after knee surg. 3 weeks ago-normally doesn't have that problem Past Psychological History: ADD/ADHD Smoking Status: Second hand smoke exposure Past Alcohol Use History: Abuse, Heavy Past Drug Use History: Marijuana - Past Family History Mother Family Medical History: No Reported History Medications and Allergies Home Medications Medication Instructions Recorded Confirmed Type Omeprazole Magnesium [PriLOSEC OTC] 40 mg PO DAILY 02/11/23 08/24/23 History Levothyroxine Sodium [Synthroid] 50 mcg PO DAILY 08/24/23 08/24/23 History Allergies Allergy/AdvReac Type Severity Reaction Status Date / Time No Known Allergies Allergy Verified 08/24/23 21:02 Physical Exam Vitals: Vital Signs Temp Pulse Resp BP Pulse Ox 08/25/23 09:18 111 H 20 93/67 92 L 08/25/23 07:36 112 H 20 91/65 91 L 08/25/23 06:30 111 H 20 97/75 92 L 08/25/23 06:00 108 H 15 87/40 94 L 08/25/23 05:30 109 H 20 107/66 93 L 08/25/23 05:00 114 H 17 91/48 94 L 08/25/23 04:30 105 H 19 84/41 08/25/23 04:03 111 H 20 83/65 97 08/25/23 04:00 110 H 16 97/53 93 L 08/25/23 03:30 105 H 16 88/47 95 08/25/23 03:00 112 H 12 81/57 94 L 08/25/23 02:30 108 H 15 106/63 93 L 08/25/23 02:00 106 H 16 83/66 92 L 08/25/23 01:30 112 H 19 119/75 94 L 08/25/23 01:00 120 H 20 97/60 95 08/25/23 00:30 114 H 22 99/75 94 L 08/25/23 00:00 120 H 21 78/58 94 L 08/24/23 23:44 98.0 F 114 H 18 78/58 94 L 08/24/23 23:39 116 H 22 142/102 94 L 08/24/23 23:06 116 H 20 92/60 08/24/23 22:57 113 H 20 92/60 08/24/23 21:40 116 H 20 91/57 97 08/24/23 19:41 98.6 F 117 H 18 108/46 98 Intake and Output 08/24/23 08/25/23 08/25/23 22:59 06:59 14:59 Other: Weight 68.039 kg Results CBC & Chem 7: 08/24/23 20:42 08/25/23 07:38 Labs: Abnormal Lab Results - Last 24 Hours (Table) 08/24/23 08/24/23 08/24/23 Range/Units 20:42 20:42 20:42 WBC 19.2 H (3.8-10.6) k/uL RBC 2.83 L (3.80-5.40) m/uL Hgb 10.6 L (11.4-16.0) gm/dL Hct 33.5 L (34.0-46.0) % MCV 118.6 H (80.0-100.0) fL MCH 37.6 H (25.0-35.0) pg RDW 17.5 H (11.5-15.5) % Neutrophils # (Manual) 15.30 H (1.3-7.7) k/uL Monocytes # (Manual) 1.34 H (0-1.0) k/uL Metamyelocytes # (Man) 0.38 H (0) k/uL Nucleated RBCs 2 H (0-0) /100 WBC Macrocytosis Marked A PT 21.2 H (10.0-12.5) sec INR 2.1 H (<1.2) APTT 33.8 H (22.0-30.0) sec Sodium 127 L (137-145) mmol/L Potassium 5.2 H (3.5-5.1) mmol/L Chloride 95 L (98-107) mmol/L Carbon Dioxide 15 L (22-30) mmol/L BUN 37 H (7-17) mg/dL Creatinine 7.77 H* (0.52-1.04) mg/dL Glucose 65 L (74-99) mg/dL Plasma Lactic Acid Anup (0.7-2.0) mmol/L Calcium 6.9 L (8.4-10.2) mg/dL Phosphorus (2.5-4.5) mg/dL Magnesium 1.1 L (1.6-2.3) mg/dL Total Bilirubin 6.8 H (0.2-1.3) mg/dL AST 285 H (14-36) U/L ALT 72 H (4-34) U/L Alkaline Phosphatase 236 H (38-126) U/L Total Protein 5.5 L (6.3-8.2) g/dL Albumin 2.4 L (3.5-5.0) g/dL 08/24/23 08/25/23 08/25/23 Range/Units 20:42 01:24 04:20 WBC (3.8-10.6) k/uL RBC (3.80-5.40) m/uL Hgb (11.4-16.0) gm/dL Hct (34.0-46.0) % MCV (80.0-100.0) fL MCH (25.0-35.0) pg RDW (11.5-15.5) % Neutrophils # (Manual) (1.3-7.7) k/uL Monocytes # (Manual) (0-1.0) k/uL Metamyelocytes # (Man) (0) k/uL Nucleated RBCs (0-0) /100 WBC Macrocytosis PT (10.0-12.5) sec INR (<1.2) APTT (22.0-30.0) sec Sodium (137-145) mmol/L Potassium (3.5-5.1) mmol/L Chloride (98-107) mmol/L Carbon Dioxide (22-30) mmol/L BUN (7-17) mg/dL Creatinine (0.52-1.04) mg/dL Glucose (74-99) mg/dL Plasma Lactic Acid Anup 3.2 H* 3.2 H* 2.8 H* (0.7-2.0) mmol/L Calcium (8.4-10.2) mg/dL Phosphorus (2.5-4.5) mg/dL Magnesium (1.6-2.3) mg/dL Total Bilirubin (0.2-1.3) mg/dL AST (14-36) U/L ALT (4-34) U/L Alkaline Phosphatase (38-126) U/L Total Protein (6.3-8.2) g/dL Albumin (3.5-5.0) g/dL 08/25/23 08/25/23 Range/Units 07:38 07:38 WBC (3.8-10.6) k/uL RBC (3.80-5.40) m/uL Hgb (11.4-16.0) gm/dL Hct (34.0-46.0) % MCV (80.0-100.0) fL MCH (25.0-35.0) pg RDW (11.5-15.5) % Neutrophils # (Manual) (1.3-7.7) k/uL Monocytes # (Manual) (0-1.0) k/uL Metamyelocytes # (Man) (0) k/uL Nucleated RBCs (0-0) /100 WBC Macrocytosis PT (10.0-12.5) sec INR (<1.2) APTT (22.0-30.0) sec Sodium 129 L (137-145) mmol/L Potassium (3.5-5.1) mmol/L Chloride 97 L (98-107) mmol/L Carbon Dioxide 16 L (22-30) mmol/L BUN 36 H (7-17) mg/dL Creatinine 7.70 H* (0.52-1.04) mg/dL Glucose 109 H (74-99) mg/dL Plasma Lactic Acid Anup 2.7 H* (0.7-2.0) mmol/L Calcium 6.6 L (8.4-10.2) mg/dL Phosphorus 2.4 L (2.5-4.5) mg/dL Magnesium (1.6-2.3) mg/dL Total Bilirubin 6.6 H (0.2-1.3) mg/dL AST 235 H (14-36) U/L ALT 68 H (4-34) U/L Alkaline Phosphatase 264 H (38-126) U/L Total Protein 5.2 L (6.3-8.2) g/dL Albumin 2.2 L (3.5-5.0) g/dL
[2023-08-25 12:47] LABS: Mean Platelet Volume 10.7; Platelet Count 165 k/uL (150-450)
[2023-08-25 12:53] LABS: INR 1.9 (<1.2); Prothrombin Time 19.2 sec (10.0-12.5)
[2023-08-25] MEDS: MULTIVITAMINS, THERA 1 EACH TAB PO SCH (13:02)
[2023-08-25] MEDS: PYRIDOXINE 50 MG TAB PO SCH (13:02)
[2023-08-25] MEDS: PHYTONADIONE ORAL 5 MG/5 ML ORAL.SYRG PO ONE (13:02)
[2023-08-25] MEDS: ALBUMIN HUMAN 25% 50 ML in EMPTY BAG 1 BAG IVPB SCH ×2 (13:36→15:33)
--- NOTE | 2023-08-25 14:31 | US ---
Ultrasound-guided paracentesis. DATE OF EXAM: 08/25/2023 CLINICAL HISTORY: Ascites The procedure was discussed with the patient. The risks, complications, benefits, and alternatives we re discussed and any questions were answered. Informed consent was obtained. The patient was placed s upine on the ultrasound table and prepped and draped in the usual sterile fashion. All elements of maximal barrier technique were utilized. Under ultrasound guidance, access into the right lower quadrant was obtained, via the paracentesis catheter system and direct ultrasound guidanc e. Approximately 3.5 liters of straw-colored fluid was removed. Sample sent to pathology for analysis. T he patient was stable throughout the procedure and remained stable upon discharge from Department of Radiology. IMPRESSION: Successful paracentesis under ultrasound guidance.
--- NOTE | 2023-08-25 16:42 | P.GSCN ---
History of Present Illness History of present illness: 48-year-old white female, I was consulted for placement of this catheter. Patient came to the emergency room with weakness and creatinine is 7.7 patient also has history of drinking and patient has a liver cirrhosis ascites on examination patient has bilateral lower extremities swelling some abdominal distention Femorals are 1+ Chest is clear on present second sound present Abdomen distended no peritoneal sign Plan is placement of a dialysis catheter risk and complication discussed Past Medical History Past Medical History: Asthma, GERD/Reflux, Hearing Disorder / Deafness, Skin Disorder Additional Past Medical History / Comment(s): seasonal allergies, heart murmur,. exercise induced asthma, bilat varicose veins, migraines, occasional edema lower legs, eczema, periorbital dermatitis History of Any Multi-Drug Resistant Organisms: None Reported Past Surgical History: Orthopedic Surgery Additional Past Surgical History / Comment(s): bilat varicose vein sx, EGD, sinus surg., ORIF right ankle, arthroscopic left knee surg. 3 weeks ago @[facility] Past Anesthesia/Blood Transfusion Reactions: Previous Problems w/ Anesthesia, Motion Sickness, Postoperative Nausea & Vomiting (PONV) Additional Past Anesthesia/Blood Transfusion Reaction / Comm: slow to wake up after sinus sx years ago, PONV after knee surg. 3 weeks ago-normally doesn't have that problem Past Psychological History: ADD/ADHD Smoking Status: Second hand smoke exposure Past Alcohol Use History: Abuse, Heavy Past Drug Use History: Marijuana - Past Family History Mother Family Medical History: No Reported History Medications and Allergies Home Medications Medication Instructions Recorded Confirmed Type Omeprazole Magnesium [PriLOSEC OTC] 40 mg PO DAILY 02/11/23 08/24/23 History Levothyroxine Sodium [Synthroid] 50 mcg PO DAILY 08/24/23 08/24/23 History Allergies Allergy/AdvReac Type Severity Reaction Status Date / Time No Known Allergies Allergy Verified 08/24/23 21:02 Surgical - Exam Vital Signs Temp Pulse Resp BP Pulse Ox 98.6 F 117 H 18 108/46 98 08/24/23 19:41 08/24/23 19:41 08/24/23 19:41 08/24/23 19:41 08/24/23 19:41 Results - Labs 08/25/23 12:29 08/25/23 07:38 Abnormal Lab Results - Last 24 Hours (Table) 08/24/23 08/24/2308/23/24 Range/Units 20:42 20:42 20:42 WBC 19.2 H (3.8-10.6) k/uL RBC 2.83 L (3.80-5.40) m/uL Hgb 10.6 L (11.4-16.0) gm/dL Hct 33.5 L (34.0-46.0) % MCV 118.6 H (80.0-100.0) fL MCH 37.6 H (25.0-35.0) pg RDW 17.5 H (11.5-15.5) % Neutrophils # (Manual) 15.30 H (1.3-7.7) k/uL Monocytes # (Manual) 1.34 H (0-1.0) k/uL Metamyelocytes # (Man) 0.38 H (0) k/uL Nucleated RBCs 2 H (0-0) /100 WBC Macrocytosis Marked A PT 21.2 H (10.0-12.5) sec INR 2.1 H (<1.2) APTT 33.8 H (22.0-30.0) sec Sodium 127 L (137-145) mmol/L Potassium 5.2 H (3.5-5.1) mmol/L Chloride 95 L (98-107) mmol/L Carbon Dioxide 15 L (22-30) mmol/L BUN 37 H (7-17) mg/dL Creatinine 7.77 H* (0.52-1.04) mg/dL Glucose 65 L (74-99) mg/dL Plasma Lactic Acid Anup (0.7-2.0) mmol/L Calcium 6.9 L (8.4-10.2) mg/dL Phosphorus (2.5-4.5) mg/dL Magnesium 1.1 L (1.6-2.3) mg/dL Total Bilirubin 6.8 H (0.2-1.3) mg/dL AST 285 H (14-36) U/L ALT 72 H (4-34) U/L Alkaline Phosphatase 236 H (38-126) U/L Total Protein 5.5 L (6.3-8.2) g/dL Albumin 2.4 L (3.5-5.0) g/dL 08/24/23 08/25/23 08/25/23 Range/Units 20:42 01:24 04:20 WBC (3.8-10.6) k/uL RBC (3.80-5.40) m/uL Hgb (11.4-16.0) gm/dL Hct (34.0-46.0) % MCV (80.0-100.0) fL MCH (25.0-35.0) pg RDW (11.5-15.5) % Neutrophils # (Manual) (1.3-7.7) k/uL Monocytes # (Manual) (0-1.0) k/uL Metamyelocytes # (Man) (0) k/uL Nucleated RBCs (0-0) /100 WBC Macrocytosis PT (10.0-12.5) sec INR (<1.2) APTT (22.0-30.0) sec Sodium (137-145) mmol/L Potassium (3.5-5.1) mmol/L Chloride (98-107) mmol/L Carbon Dioxide (22-30) mmol/L BUN (7-17) mg/dL Creatinine (0.52-1.04) mg/dL Glucose (74-99) mg/dL Plasma Lactic Acid Anup 3.2 H* 3.2 H* 2.8 H* (0.7-2.0) mmol/L Calcium (8.4-10.2) mg/dL Phosphorus (2.5-4.5) mg/dL Magnesium (1.6-2.3) mg/dL Total Bilirubin (0.2-1.3) mg/dL AST (14-36) U/L ALT (4-34) U/L Alkaline Phosphatase (38-126) U/L Total Protein (6.3-8.2) g/dL Albumin (3.5-5.0) g/dL 08/25/23 08/25/23 08/25/23 Range/Units 07:38 07:38 10:36 WBC (3.8-10.6) k/uL RBC (3.80-5.40) m/uL Hgb (11.4-16.0) gm/dL Hct (34.0-46.0) % MCV (80.0-100.0) fL MCH (25.0-35.0) pg RDW (11.5-15.5) % Neutrophils # (Manual) (1.3-7.7) k/uL Monocytes # (Manual) (0-1.0) k/uL Metamyelocytes # (Man) (0) k/uL Nucleated RBCs (0-0) /100 WBC Macrocytosis PT (10.0-12.5) sec INR (<1.2) APTT (22.0-30.0) sec Sodium 129 L (137-145) mmol/L Potassium (3.5-5.1) mmol/L Chloride 97 L (98-107) mmol/L Carbon Dioxide 16 L (22-30) mmol/L BUN 36 H (7-17) mg/dL Creatinine 7.70 H* (0.52-1.04) mg/dL Glucose 109 H (74-99) mg/dL Plasma Lactic Acid Anup 2.7 H* 2.9 H* (0.7-2.0) mmol/L Calcium 6.6 L (8.4-10.2) mg/dL Phosphorus 2.4 L (2.5-4.5) mg/dL Magnesium (1.6-2.3) mg/dL Total Bilirubin 6.6 H (0.2-1.3) mg/dL AST 235 H (14-36) U/L ALT 68 H (4-34) U/L Alkaline Phosphatase 264 H (38-126) U/L Total Protein 5.2 L (6.3-8.2) g/dL Albumin 2.2 L (3.5-5.0) g/dL 08/25/23 08/25/23 08/25/23 Range/Units 12:30 12:32 15:13 WBC (3.8-10.6) k/uL RBC (3.80-5.40) m/uL Hgb (11.4-16.0) gm/dL Hct (34.0-46.0) % MCV (80.0-100.0) fL MCH (25.0-35.0) pg RDW (11.5-15.5) % Neutrophils # (Manual) (1.3-7.7) k/uL Monocytes # (Manual) (0-1.0) k/uL Metamyelocytes # (Man) (0) k/uL Nucleated RBCs (0-0) /100 WBC Macrocytosis PT 19.2 H (10.0-12.5) sec INR 1.9 H (<1.2) APTT (22.0-30.0) sec Sodium (137-145) mmol/L Potassium (3.5-5.1) mmol/L Chloride (98-107) mmol/L Carbon Dioxide (22-30) mmol/L BUN (7-17) mg/dL Creatinine (0.52-1.04) mg/dL Glucose (74-99) mg/dL Plasma Lactic Acid Anup 2.8 H* 3.0 H* (0.7-2.0) mmol/L Calcium (8.4-10.2) mg/dL Phosphorus (2.5-4.5) mg/dL Magnesium (1.6-2.3) mg/dL Total Bilirubin (0.2-1.3) mg/dL AST (14-36) U/L ALT (4-34) U/L Alkaline Phosphatase (38-126) U/L Total Protein (6.3-8.2) g/dL Albumin (3.5-5.0) g/dL Diabetes panel 08/24/23 08/25/23 Range/Units 20:42 07:38 Sodium 127 L 129 L (137-145) mmol/L Potassium 5.2 H 4.1 (3.5-5.1) mmol/L Chloride 95 L 97 L (98-107) mmol/L Carbon Dioxide 15 L 16 L (22-30) mmol/L BUN 37 H 36 H (7-17) mg/dL Creatinine 7.77 H* 7.70 H* (0.52-1.04) mg/dL Glucose 65 L 109 H (74-99) mg/dL Calcium 6.9 L 6.6 L (8.4-10.2) mg/dL AST 285 H 235 H (14-36) U/L ALT 72 H 68 H (4-34) U/L Alkaline Phosphatase 236 H 264 H (38-126) U/L Total Protein 5.5 L 5.2 L (6.3-8.2) g/dL Albumin 2.4 L 2.2 L (3.5-5.0) g/dL Calcium panel 08/24/23 08/25/23 Range/Units 20:42 07:38 Calcium 6.9 L 6.6 L (8.4-10.2) mg/dL Phosphorus 2.4 L (2.5-4.5) mg/dL Albumin 2.4 L 2.2 L (3.5-5.0) g/dL Pituitary panel 08/24/23 08/25/23 Range/Units 20:42 07:38 Sodium 127 L 129 L (137-145) mmol/L Potassium 5.2 H 4.1 (3.5-5.1) mmol/L Chloride 95 L 97 L (98-107) mmol/L Carbon Dioxide 15 L 16 L (22-30) mmol/L BUN 37 H 36 H (7-17) mg/dL Creatinine 7.77 H* 7.70 H* (0.52-1.04) mg/dL Glucose 65 L 109 H (74-99) mg/dL Calcium 6.9 L 6.6 L (8.4-10.2) mg/dL Adrenal panel 08/24/23 08/25/23 Range/Units 20:42 07:38 Sodium 127 L 129 L (137-145) mmol/L Potassium 5.2 H 4.1 (3.5-5.1) mmol/L Chloride 95 L 97 L (98-107) mmol/L Carbon Dioxide 15 L 16 L (22-30) mmol/L BUN 37 H 36 H (7-17) mg/dL Creatinine 7.77 H* 7.70 H* (0.52-1.04) mg/dL Glucose 65 L 109 H (74-99) mg/dL Calcium 6.9 L 6.6 L (8.4-10.2) mg/dL Total Bilirubin 6.8 H 6.6 H (0.2-1.3) mg/dL AST 285 H 235 H (14-36) U/L ALT 72 H 68 H (4-34) U/L Alkaline Phosphatase 236 H 264 H (38-126) U/L Total Protein 5.5 L 5.2 L (6.3-8.2) g/dL Albumin 2.4 L 2.2 L (3.5-5.0) g/dL
[2023-08-25 16:55] LABS: Hepatitis B Surface AB- Quant 3.5 mIU/mL
[2023-08-25 16:56] LABS: Hepatitis B Surface Antigen Nonreactive (Nonreactive)
[2023-08-25] MEDS: LIDOCAINE 2% (PF) 20 MG/ML 5 ML VIAL SQ ONE (17:39)
--- NOTE | 2023-08-25 18:29 | IR ---
EXAMINATION TYPE: IR cvc insert non tunneled Intraoperative/procedural fluoroscopic services were pro vided. CLINICAL INDICATION:Female, 48 years old with history of hemodialysis catheter insertion, 0.1min fluo ro, 0.0059Irha2; , [facility] Total fluoroscopy time is 0.1 min. DAP: 0.2019 Gycm2 uGym2 Please see the operative/procedural note for further details.
[2023-08-25] MEDS: LORazepam 2 MG/ML INJ IV PRN (20:20)
--- NOTE | 2023-08-25 21:33 | OP ---
OPERATIVE REPORT DATE OF SERVICE : PREOPERATIVE DIAGNOSIS: Acute renal failure. POSTOPERATIVE DIAGNOSIS: Acute renal failure. PROCEDURE PERFORMED: Ultrasound-guided 20 cm dialysis catheter placed via right femoral approach. DESCRIPTION OF PROCEDURE: The patient was brought to the lab systems analyst. Right groin was prepped and drape applied in the usual sterile manner. 1% lidocaine infiltrated in right groin area. Ultrasound- guided micropuncture into the right femoral vein, micropuncture guidewire was passed. Then 4-Azerbaijani dilator on top of the guidewire, then we passed a regular guidewire. After that we passed a dilator and then we placed triple-lumen dialysis catheter on the top of the guidewire. Guidewire was removed and flushed with heparin saline and hep- locked, secured with 3-0 nylon. Dressing applied. The patient tolerated the procedure well. MMODL / IJN: [id number] /
[2023-08-25] MEDS ORDERED: ZINC OXIDE PASTE (Z-GUARD) 1 APPLIC TOPICAL PRN (23:12)
[2023-08-26 06:04] LABS: ALT 45 U/L (4-34); AST 174 U/L (14-36); African American GFR (CKD) 7 (>60 ml/min/1.73 sqM); Albumin 2.3 g/dL (3.5-5.0); Alkaline Phosphatase 189 U/L (38-126); Anion Gap 8 mmol/L; Blood Urea Nitrogen 29 mg/dL (7-17); Calcium 7.4 mg/dL (8.4-10.2); Carbon Dioxide 26 mmol/L (22-30); Chloride 96 mmol/L (98-107); Glucose 104 mg/dL (74-99); Magnesium 2.2 mg/dL (1.6-2.3); Non-African American GFR(CKD) 6 (>60 ml/min/1.73 sqM); Potassium 3.4 mmol/L (3.5-5.1); Sodium 130 mmol/L (137-145); Total Bilirubin 6.5 mg/dL (0.2-1.3); Total Protein 4.9 g/dL (6.3-8.2)
[2023-08-26] MEDS: MIDODRINE 5 MG TAB PO ONE (09:37)
[2023-08-26] MEDS ORDERED: Phosphorus Replacement Protoco 1 EACH MISC MISCELLANE PRN (09:47)
--- NOTE | 2023-08-26 09:47 | P.PN ---
Subjective Patient is seen in follow-up for acute kidney injury. Started on hemodialysis August 25, 2023. Oliguric despite IV Lasix. Underwent paracentesis with 3.5 L drained August 25, 2023. Vital signs are stable. General: No acute distress. HEENT: Head exam is unremarkable. LUNGS: No audible rhonchi or wheezes. HEART: Rate and Rhythm are regular. ABDOMEN: Nontender. Obese. EXTREMITITES: 1+ edema. Objective - Vital Signs Vital signs: Vital Signs Temp 98.2 F 08/26/23 09:00 Pulse 113 H 08/26/23 09:00 Resp 16 08/26/23 09:00 BP 87/57 08/26/23 09:00 Pulse Ox 96 08/26/23 09:00 FiO2 Intake & Output 08/25/23 08/26/23 08/26/23 18:59 06:59 18:59 Intake Total 400 118 Output Total 900 Balance -500 118 Weight 68.039 kg 82 kg Intake: Oral 118 Hemodialysis 400 Output: Hemodialysis 900 Other: Voiding Method Indwelling Catheter Indwelling Catheter - Labs CBC & Chem 7: 08/25/23 12:29 08/26/23 05:08 Labs: Abnormal Lab Results - Last 24 Hours (Table) 08/25/23 08/25/23 08/25/23 Range/Units 10:36 12:30 12:32 PT 19.2 H (10.0-12.5) sec INR 1.9 H (<1.2) Sodium (137-145) mmol/L Potassium (3.5-5.1) mmol/L Chloride (98-107) mmol/L BUN (7-17) mg/dL Creatinine (0.52-1.04) mg/dL Glucose (74-99) mg/dL Plasma Lactic Acid Anup 2.9 H* 2.8 H* (0.7-2.0) mmol/L Calcium (8.4-10.2) mg/dL Total Bilirubin (0.2-1.3) mg/dL AST (14-36) U/L ALT (4-34) U/L Alkaline Phosphatase (38-126) U/L Total Protein (6.3-8.2) g/dL Albumin (3.5-5.0) g/dL 08/25/23 08/25/23 08/25/23 Range/Units 15:13 18:04 21:02 PT (10.0-12.5) sec INR (<1.2) Sodium (137-145) mmol/L Potassium (3.5-5.1) mmol/L Chloride (98-107) mmol/L BUN (7-17) mg/dL Creatinine (0.52-1.04) mg/dL Glucose (74-99) mg/dL Plasma Lactic Acid Anup 3.0 H* 2.9 H* 3.0 H* (0.7-2.0) mmol/L Calcium (8.4-10.2) mg/dL Total Bilirubin (0.2-1.3) mg/dL AST (14-36) U/L ALT (4-34) U/L Alkaline Phosphatase (38-126) U/L Total Protein (6.3-8.2) g/dL Albumin (3.5-5.0) g/dL 08/26/23 08/26/23 08/26/23 Range/Units 01:30 05:08 05:08 PT (10.0-12.5) sec INR (<1.2) Sodium 130 L (137-145) mmol/L Potassium 3.4 L (3.5-5.1) mmol/L Chloride 96 L (98-107) mmol/L BUN 29 H (7-17) mg/dL Creatinine 6.95 H (0.52-1.04) mg/dL Glucose 104 H (74-99) mg/dL Plasma Lactic Acid Anup 2.9 H* 2.8 H* (0.7-2.0) mmol/L Calcium 7.4 L (8.4-10.2) mg/dL Total Bilirubin 6.5 H (0.2-1.3) mg/dL AST 174 H (14-36) U/L ALT 45 H (4-34) U/L Alkaline Phosphatase 189 H (38-126) U/L Total Protein 4.9 L (6.3-8.2) g/dL Albumin 2.3 L (3.5-5.0) g/dL 08/26/23 Range/Units 08:00 PT (10.0-12.5) sec INR (<1.2) Sodium (137-145) mmol/L Potassium (3.5-5.1) mmol/L Chloride (98-107) mmol/L BUN (7-17) mg/dL Creatinine (0.52-1.04) mg/dL Glucose (74-99) mg/dL Plasma Lactic Acid Anup 3.0 H* (0.7-2.0) mmol/L Calcium (8.4-10.2) mg/dL Total Bilirubin (0.2-1.3) mg/dL AST (14-36) U/L ALT (4-34) U/L Alkaline Phosphatase (38-126) U/L Total Protein (6.3-8.2) g/dL Albumin (3.5-5.0) g/dL Assessment and Plan Plan: Assessment: 1. Acute kidney injury secondary to ATN secondary to hypotension. Also concern for hepatorenal syndrome. Creatinine 7.7. Creatinine 0.6-0.7 in February 2023. No hydronephrosis noted on CAT scan. 2. Hypervolemic hyponatremia. Better. 3. Volume overload with ascites. Status post paracentesis August 25, 2023 with 3.5 L drained. 4. Metabolic acidosis secondary to acute kidney injury and lactic acidosis. Improved with bicarb drip and dialysis. 5. Alcohol abuse. 6. Liver cirrhosis. 7. Hypomagnesemia from poor intake and alcohol abuse. Replaced. Better. Plan: Hemodialysis today and then again on Monday. Hep-Lock IV fluids. Maintain IV Lasix. Maintain midodrine. Avoid nephrotoxins. Repeat phosphorus level.
[2023-08-26] MEDS: POTASSIUM CHLORIDE ER 20 MEQ TAB.ER PO STA (12:45)
[2023-08-26] MEDS: THIAMINE 100 MG TAB PO SCH (12:49)
[2023-08-26] MEDS: LACTULOSE 200 GM/300 ML (FROM 1/2 GAL JUG) RECTAL ONE (18:23)
--- NOTE | 2023-08-26 22:47 | P.PN ---
Subjective Covering Dr. Ulloa started today 08/26/23 This is a 48-year-old patient, follows with Dr. Zulema Domínguez. Chronic stable medical conditions include exercise-induced asthma, bilateral varicose veins, migraines, GERD. She presented to the ER last night. Feeling weak. Patient states for last 2 years she has been having numbness both in the distal legs and both the arms. Patient been drinking vodka for many years up till about 2 weeks ago. Says a bout half a pint of vodka. No fever chills no obvious diarrhea vomiting. Tired. Because of weakness she has had fallen. She did have right ankle surgery [facility] Dr[facility] Fernandez 08/26/2023 This is a pleasant 48 years old female with past medical history of alcohol l use disorder, asthma, GERD, migraines, at home previously shows only on Prilosec She was recently hospitalized last January 2023 for nausea vomiting mild lactic acidosis and electrolyte imbalance could be related to her alcohol effect and discharged within 3 days Comes this time because of generalized weakness worsening leg edema and abdominal distention. Patient drinks about 1/2 pint of liquor daily but she quit 2 weeks ago prior to admission to the hospital On admission patient was found to have severe disease with severe acute renal failure serum creatinine was 7.7 with evidence of oliguria and did not respond to IV Lasix so started on hemodialysis. Today is her second treatment and Monday will be the third hemodialysis. Creatinine today 6.9 Also she has evidence of liver injury with significantly elevated liver enzymes AST 285 coming down today to 174 and ALT 72, down to 45. While bilirubin remains 6.8 and 6.5 today she has evidence of jaundice also on examination The cause is thought secondary to severe alcohol use disorder, cannot rule out other causes. Hepatitis B test came back negative. Patient's has evidence of anasarca with leg swelling, abdominal distention status post paracentesis where 3.5 L of fluid has been taken out Sodium on admission was 127 and 130 today She is afebrile, mildly tachycardic with heart rate 101, blood pressure is borderline 92/52 Patient is awake alert and oriented to time place person but she is drowsy and lethargic, patient is appropriate and follow commands and has insight Denies abdominal pain but her abdomen mildly distended she has 3+ bilateral pitting leg edema Breathing is quiet no chest pain no urinary complaint Small catheter in place with minimal urine output Denies headache dizziness weakness or numbness Patient also with poor oral intake but no nausea or vomiting. She is very weak Lactic acid is elevated Chest x-ray is negative Lumbar spine showing no fracture but degenerative disc disease of L4-L5 and L5- S1 CT of the abdomen and pelvis showing significantly enlarged liver 28.5 cm show hepatomegaly with ascites but no bowel obstruction Ultrasound of the abdomen showing splenomegaly, hepatic steatosis and ascites. CT of the brain negative for acute process proBNP 4070. Objective - Vital Signs Vital signs: Vital Signs Temp 98.8 F 08/26/23 15:40 Pulse 113 H 08/26/23 15:40 Resp 18 08/26/23 15:40 BP 94/55 08/26/23 15:40 Pulse Ox 91 L 08/26/23 15:40 FiO2 Intake & Output 08/25/23 08/26/23 08/26/23 18:59 06:59 18:59 Intake Total 400 578 Output Total 900 950 Balance -500 -372 Weight 68.039 kg 82 kg Intake: Oral 178 Hemodialysis 400 400 Output: Urine 100 Hemodialysis 900 850 Other: Voiding Method Indwelling Catheter Indwelling Catheter # Bowel Movements 1 - Exam -GENERAL: The patient is alert and oriented x3, mildly drowsy and lethargic, answers questions appropriately -HEENT: Pupils are round and equally reacting to light. EOMI. + scleral icterus. No conjunctival pallor. Normocephalic, atraumatic. No pharyngeal erythema. No thyromegaly. CARDIOVASCULAR: S1 and S2 present. No murmurs, rubs, or gallops. PULMONARY: Chest is clear to auscultation, no wheezing , no crackles. -ABDOMEN: Soft, nontender, mildly distended, normoactive bowel sounds. No palpable organomegaly. MUSCULOSKELETAL: No joint swelling or deformity. -EXTREMITIES: No cyanosis, clubbing.bilateral pitting leg edema. NEUROLOGICAL: Gross neurological examination did not reveal any focal deficits. SKIN: No rashes. no petechiae. - Labs CBC & Chem 7: 08/25/23 12:29 08/26/23 05:08 Labs: Abnormal Lab Results - Last 24 Hours (Table) 08/25/23 08/25/23 08/26/23 Range/Units 18:04 21:02 01:30 Sodium (137-145) mmol/L Potassium (3.5-5.1) mmol/L Chloride (98-107) mmol/L BUN (7-17) mg/dL Creatinine (0.52-1.04) mg/dL Glucose (74-99) mg/dL Plasma Lactic Acid Anup 2.9 H* 3.0 H* 2.9 H* (0.7-2.0) mmol/L Calcium (8.4-10.2) mg/dL Total Bilirubin (0.2-1.3) mg/dL AST (14-36) U/L ALT (4-34) U/L Alkaline Phosphatase (38-126) U/L Total Protein (6.3-8.2) g/dL Albumin (3.5-5.0) g/dL 08/26/23 08/26/23 08/26/23 Range/Units 05:08 05:08 08:00 Sodium 130 L (137-145) mmol/L Potassium 3.4 L (3.5-5.1) mmol/L Chloride 96 L (98-107) mmol/L BUN 29 H (7-17) mg/dL Creatinine 6.95 H (0.52-1.04) mg/dL Glucose 104 H (74-99) mg/dL Plasma Lactic Acid Anup 2.8 H* 3.0 H* (0.7-2.0) mmol/L Calcium 7.4 L (8.4-10.2) mg/dL Total Bilirubin 6.5 H (0.2-1.3) mg/dL AST 174 H (14-36) U/L ALT 45 H (4-34) U/L Alkaline Phosphatase 189 H (38-126) U/L Total Protein 4.9 L (6.3-8.2) g/dL Albumin 2.3 L (3.5-5.0) g/dL 08/26/23 08/26/23 Range/Units 11:06 14:24 Sodium (137-145) mmol/L Potassium (3.5-5.1) mmol/L Chloride (98-107) mmol/L BUN (7-17) mg/dL Creatinine (0.52-1.04) mg/dL Glucose (74-99) mg/dL Plasma Lactic Acid Anup 2.9 H* 3.6 H* (0.7-2.0) mmol/L Calcium (8.4-10.2) mg/dL Total Bilirubin (0.2-1.3) mg/dL AST (14-36) U/L ALT (4-34) U/L Alkaline Phosphatase (38-126) U/L Total Protein (6.3-8.2) g/dL Albumin (3.5-5.0) g/dL Assessment and Plan Assessment: Acute Liver disease with coagulopathy, elevated liver enzymes and bilirubin suspicious for liver failure Alcoholic liver disease, with ascites s/p paracentesis 3.5 L taken out Acute kidney injury. Started on hemodialysis on 08/25/2023 suspected due to hypotension and ATN and there is concern for hepatorenal syndrome Coagulopathy with elevated INR with no evidence of bleeding status post vitamin K Hepatomegaly and splenomegaly secondary to above Leukocytosis Mild anemia Poor oral intake Anasarca secondary to above Elevated lactic acid Obesity with BMI of 31 Plan: Patient with evidence of severe alcoholic liver disease. I calculate MELD score based on her creatinine of 4 (I: Hemoglobin 6.5 and INR maximum number in the calculator) 1.9 and the results of MELD score is 34. There is no GI coverage in this facility, I discussed the case with the patient to transfer her to tertiary care center she wanted to wait till she talk to her about follow-up with her tonight she confirmed that she is agreeable to be transferred to another facility after she discussed with her I called her [facility] and initiated the process. Patient with no evidence of alcohol withdrawal. Continue with thiamine Nephrology team on the case and patient was started on hemodialysis yesterday, another dialysis today and 31 on Monday Patient did not respond well to IV Lasix and she has minimal urine output Also she received vitamin K with Atarax mildly improved DVT prophylaxis: Patient already coagulopathic GI prophylaxis Pepcid Prognosis is guarded Discussed with staff, transfer process is initiated and patient is agreeable
[2023-08-27] MEDS: PANTOPRAZOLE 40 MG/10 ML VIAL IVP SCH (00:35)
[2023-08-27 08:21] LABS: Anisocytosis Slight; HCT 35.5 % (34.0-46.0); HGB 10.7 gm/dL (11.4-16.0); Hypochromasia Marked; MCH 36.9 pg (25.0-35.0); MCHC 30.2 g/dL (31.0-37.0); MCV 122.1 fL (80.0-100.0); Macrocytosis Marked; Mean Platelet Volume 11.5; Platelet Count 134 k/uL (150-450); RBC 2.91 m/uL (3.80-5.40); RDW 17.6 % (11.5-15.5); WBC 17.1 k/uL (3.8-10.6)
[2023-08-27 09:07] LABS: African American GFR (CKD) 11 (>60 ml/min/1.73 sqM); Anion Gap 11 mmol/L; Blood Urea Nitrogen 18 mg/dL (7-17); Calcium 6.9 mg/dL (8.4-10.2); Carbon Dioxide 23 mmol/L (22-30); Chloride 98 mmol/L (98-107); Glucose 104 mg/dL (74-99); Magnesium 1.8 mg/dL (1.6-2.3); Non-African American GFR(CKD) 10 (>60 ml/min/1.73 sqM); Potassium 3.5 mmol/L (3.5-5.1); Sodium 132 mmol/L (137-145)
[2023-08-27 09:30] LABS: Band Neutrophils % 1 %; Lymphocytes # (M) 2.22 k/uL (1.0-4.8); Metamyelocytes # (M) 0.86 k/uL (0); Metamyelocytes % 5 %; Monocytes # (M) 0.86 k/uL (0-1.0); Myelocytes # (M) 0.34 k/uL (0); Myelocytes % 2 %; Neutrophils % (M) 75 %; Nucleated Red Blood Cells 0 /100 WBC (0-0); Total Cells Counted 200
[2023-08-27 09:33] LABS: Hypochromasia (M) Present
[2023-08-27 09:34] LABS: Anisocytosis (M) Present; Polychromasia Present; Target Cells Present
--- NOTE | 2023-08-27 10:05 | P.PN ---
Subjective Patient is seen in follow-up for acute kidney injury. Started on hemodialysis August 25, 2023. Oliguric despite IV Lasix. Underwent paracentesis with 3.5 L drained August 25, 2023. Resting in bed. present at bedside. Vital signs are stable. General: No acute distress. HEENT: Head exam is unremarkable. LUNGS: No audible rhonchi or wheezes. HEART: Rate and Rhythm are regular. ABDOMEN: Nontender. Obese. EXTREMITITES: 1+ edema. Objective - Vital Signs Vital signs: Vital Signs Temp 98.5 F 08/27/23 09:35 Pulse 110 H 08/27/23 09:35 Resp 16 08/27/23 09:35 BP 85/48 08/27/23 09:35 Pulse Ox 96 08/27/23 09:35 FiO2 Intake & Output 08/26/23 08/27/23 08/27/23 18:59 06:59 18:59 Intake Total 578 Output Total 950 Balance -372 Weight 82.5 kg Intake: Oral 178 Hemodialysis 400 Output: Urine 100 Hemodialysis 850 Other: Voiding Method Indwelling Catheter Indwelling Catheter Indwelling Catheter # Bowel Movements 1 1 - Labs CBC & Chem 7: 08/27/23 07:58 08/27/23 07:58 Labs: Abnormal Lab Results - Last 24 Hours (Table) 08/26/23 08/26/23 08/26/23 Range/Units 11:06 14:24 17:58 WBC (3.8-10.6) k/uL RBC (3.80-5.40) m/uL Hgb (11.4-16.0) gm/dL MCV (80.0-100.0) fL MCH (25.0-35.0) pg MCHC (31.0-37.0) g/dL RDW (11.5-15.5) % Plt Count (150-450) k/uL Neutrophils # (Manual) (1.3-7.7) k/uL Metamyelocytes # (Man) (0) k/uL Myelocytes # (Manual) (0) k/uL Macrocytosis Sodium (137-145) mmol/L BUN (7-17) mg/dL Creatinine (0.52-1.04) mg/dL Glucose (74-99) mg/dL Plasma Lactic Acid Anup 2.9 H* 3.6 H* 4.0 H* (0.7-2.0) mmol/L Calcium (8.4-10.2) mg/dL Ammonia (<30) umol/L 08/26/23 08/27/23 08/27/23 Range/Units 21:17 01:33 07:58 WBC (3.8-10.6) k/uL RBC (3.80-5.40) m/uL Hgb (11.4-16.0) gm/dL MCV (80.0-100.0) fL MCH (25.0-35.0) pg MCHC (31.0-37.0) g/dL RDW (11.5-15.5) % Plt Count (150-450) k/uL Neutrophils # (Manual) (1.3-7.7) k/uL Metamyelocytes # (Man) (0) k/uL Myelocytes # (Manual) (0) k/uL Macrocytosis Sodium 132 L (137-145) mmol/L BUN 18 H (7-17) mg/dL Creatinine 4.92 H (0.52-1.04) mg/dL Glucose 104 H (74-99) mg/dL Plasma Lactic Acid Anup 4.4 H* 4.0 H* (0.7-2.0) mmol/L Calcium 6.9 L (8.4-10.2) mg/dL Ammonia (<30) umol/L 08/27/23 08/27/23 08/27/23 Range/Units 07:58 07:58 07:58 WBC 17.1 H (3.8-10.6) k/uL RBC 2.91 L (3.80-5.40) m/uL Hgb 10.7 L (11.4-16.0) gm/dL MCV 122.1 H (80.0-100.0) fL MCH 36.9 H (25.0-35.0) pg MCHC 30.2 L (31.0-37.0) g/dL RDW 17.6 H (11.5-15.5) % Plt Count 134 L (150-450) k/uL Neutrophils # (Manual) 12.90 H (1.3-7.7) k/uL Metamyelocytes # (Man) 0.86 H (0) k/uL Myelocytes # (Manual) 0.34 H (0) k/uL Macrocytosis Marked A Sodium (137-145) mmol/L BUN (7-17) mg/dL Creatinine (0.52-1.04) mg/dL Glucose (74-99) mg/dL Plasma Lactic Acid Anup 3.5 H* (0.7-2.0) mmol/L Calcium (8.4-10.2) mg/dL Ammonia 76 H (<30) umol/L Microbiology - Last 24 Hours (Table) 08/25/23 14:55 Gram Stain - Preliminary Ascites Fluid Assessment and Plan Plan: Assessment: 1. Acute kidney injury secondary to ATN secondary to hypotension. Also concern for hepatorenal syndrome. Creatinine 7.7. Creatinine 0.6-0.7 in February 2023. No hydronephrosis noted on CAT scan. Started on hemodialysis August 25, 2023. Has femoral catheter. Oliguric. 2. Hypervolemic hyponatremia. Better postdialysis. 3. Volume overload with ascites. Status post paracentesis August 25, 2023 with 3.5 L drained. 4. Metabolic acidosis secondary to acute kidney injury and lactic acidosis. Improved with bicarb drip and dialysis. 5. Alcohol abuse. 6. Liver cirrhosis. 7. Hypomagnesemia from poor intake and alcohol abuse. Replaced. Better. 8. Hypophosphatemia from poor intake. 2.5 yesterday. Plan: Hemodialysis tomorrow. Maintain IV Lasix. Maintain midodrine. Avoid nephrotoxins. Awaits transfer to tertiary care facility.
[2023-08-27] MEDS: POTASSIUM CHLORIDE ER 20 MEQ TAB.ER PO STA (11:07)
--- NOTE | 2023-08-27 12:04 | P.PN ---
Subjective Covering Dr. Ulloa started today 08/26/23 This is a 48-year-old patient, follows with Dr. Zulema Domínguez. Chronic stable medical conditions include exercise-induced asthma, bilateral varicose veins, migraines, GERD. She presented to the ER last night. Feeling weak. Patient states for last 2 years she has been having numbness both in the distal legs and both the arms. Patient been drinking vodka for many years up till about 2 weeks ago. Says a bout half a pint of vodka. No fever chills no obvious diarrhea vomiting. Tired. Because of weakness she has had fallen. She did have right ankle surgery [facility] Dr. Fernandez 08/26/2023 This is a pleasant 48 years old female with past medical history of alcohol l use disorder, asthma, GERD, migraines, at home previously shows only on Prilosec She was recently hospitalized last January 2023 for nausea vomiting mild lactic acidosis and electrolyte imbalance could be related to her alcohol effect and discharged within 3 days Comes this time because of generalized weakness worsening leg edema and abdominal distention. Patient drinks about 1/2 pint of liquor daily but she quit 2 weeks ago prior to admission to the hospital On admission patient was found to have severe disease with severe acute renal failure serum creatinine was 7.7 with evidence of oliguria and did not respond to IV Lasix so started on hemodialysis. Today is her second treatment and Monday will be the third hemodialysis. Creatinine today 6.9 Also she has evidence of liver injury with significantly elevated liver enzymes AST 285 coming down today to 174 and ALT 72, down to 45. While bilirubin remains 6.8 and 6.5 today she has evidence of jaundice also on examination The cause is thought secondary to severe alcohol use disorder, cannot rule out other causes. Hepatitis B test came back negative. Patient's has evidence of anasarca with leg swelling, abdominal distention status post paracentesis where 3.5 L of fluid has been taken out Sodium on admission was 127 and 130 today She is afebrile, mildly tachycardic with heart rate 101, blood pressure is borderline 92/52 Patient is awake alert and oriented to time place person but she is drowsy and lethargic, patient is appropriate and follow commands and has insight Denies abdominal pain but her abdomen mildly distended she has 3+ bilateral pitting leg edema Breathing is quiet no chest pain no urinary complaint Small catheter in place with minimal urine output Denies headache dizziness weakness or numbness Patient also with poor oral intake but no nausea or vomiting. She is very weak Lactic acid is elevated Chest x-ray is negative Lumbar spine showing no fracture but degenerative disc disease of L4-L5 and L5- S1 CT of the abdomen and pelvis showing significantly enlarged liver 28.5 cm show hepatomegaly with ascites but no bowel obstruction Ultrasound of the abdomen showing splenomegaly, hepatic steatosis and ascites. CT of the brain negative for acute process proBNP 4070. 08/27/2023 Patient is more awake, she has lactulose enema yesterday and then she has 3-4 bowel movement yesterday and 3-4 bowel movement this morning Her ammonia level was elevated this morning 76. No more lactulose as she already has frequent bowel movement, she has mild discomfort in her lower abdomen rather than pain no vomiting but she was able to drink a little bit today, she is not eating Mentation is improved She denies chest pain or dyspnea. No bleeding. Patient remains on CIWA protocol but she is does not have withdrawal symptoms Lactic acid is still mildly elevated I discussed the case with [facility] and [facility] and both hospitals are willing to take her once bed is available. Patient is informed and she is also agreeable with the transfer Discussed with staff Objective - Vital Signs Vital signs: Vital Signs Temp 98.5 F 08/27/23 09:35 Pulse 110 H 08/27/23 09:35 Resp 16 08/27/23 09:35 BP 85/48 08/27/23 09:35 Pulse Ox 96 08/27/23 09:35 FiO2 Intake & Output 08/26/23 08/27/23 08/27/23 18:59 06:59 18:59 Intake Total 578 Output Total 950 Balance -372 Weight 82.5 kg Intake: Oral 178 Hemodialysis 400 Output: Urine 100 Hemodialysis 850 Other: Voiding Method Indwelling Catheter Indwelling Catheter Indwelling Catheter # Bowel Movements 1 1 - Exam -GENERAL: The patient is alert and oriented x3, mildly drowsy and lethargic, answers questions appropriately -HEENT: Pupils are round and equally reacting to light. EOMI. + scleral icterus. No conjunctival pallor. Normocephalic, atraumatic. No pharyngeal erythema. No thyromegaly. CARDIOVASCULAR: S1 and S2 present. No murmurs, rubs, or gallops. PULMONARY: Chest is clear to auscultation, no wheezing , no crackles. -ABDOMEN: Soft, nontender, mildly distended, normoactive bowel sounds. No palpable organomegaly. MUSCULOSKELETAL: No joint swelling or deformity. -EXTREMITIES: No cyanosis, clubbing.bilateral pitting leg edema. NEUROLOGICAL: Gross neurological examination did not reveal any focal deficits. SKIN: No rashes. no petechiae. - Labs CBC & Chem 7: 08/27/23 07:58 08/27/23 07:58 Labs: Abnormal Lab Results - Last 24 Hours (Table) 08/26/23 08/26/23 08/26/23 Range/Units 11:06 14:24 17:58 WBC (3.8-10.6) k/uL RBC (3.80-5.40) m/uL Hgb (11.4-16.0) gm/dL MCV (80.0-100.0) fL MCH (25.0-35.0) pg MCHC (31.0-37.0) g/dL RDW (11.5-15.5) % Plt Count (150-450) k/uL Neutrophils # (Manual) (1.3-7.7) k/uL Metamyelocytes # (Man) (0) k/uL Myelocytes # (Manual) (0) k/uL Macrocytosis Sodium (137-145) mmol/L BUN (7-17) mg/dL Creatinine (0.52-1.04) mg/dL Glucose (74-99) mg/dL Plasma Lactic Acid Anup 2.9 H* 3.6 H* 4.0 H* (0.7-2.0) mmol/L Calcium (8.4-10.2) mg/dL Ammonia (<30) umol/L 08/26/23 08/27/23 08/27/23 Range/Units 21:17 01:33 07:58 WBC (3.8-10.6) k/uL RBC (3.80-5.40) m/uL Hgb (11.4-16.0) gm/dL MCV (80.0-100.0) fL MCH (25.0-35.0) pg MCHC (31.0-37.0) g/dL RDW (11.5-15.5) % Plt Count (150-450) k/uL Neutrophils # (Manual) (1.3-7.7) k/uL Metamyelocytes # (Man) (0) k/uL Myelocytes # (Manual) (0) k/uL Macrocytosis Sodium 132 L (137-145) mmol/L BUN 18 H (7-17) mg/dL Creatinine 4.92 H (0.52-1.04) mg/dL Glucose 104 H (74-99) mg/dL Plasma Lactic Acid Anup 4.4 H* 4.0 H* (0.7-2.0) mmol/L Calcium 6.9 L (8.4-10.2) mg/dL Ammonia (<30) umol/L 08/27/23 08/27/23 08/27/23 Range/Units 07:58 07:58 07:58 WBC 17.1 H (3.8-10.6) k/uL RBC 2.91 L (3.80-5.40) m/uL Hgb 10.7 L (11.4-16.0) gm/dL MCV 122.1 H (80.0-100.0) fL MCH 36.9 H (25.0-35.0) pg MCHC 30.2 L (31.0-37.0) g/dL RDW 17.6 H (11.5-15.5) % Plt Count 134 L (150-450) k/uL Neutrophils # (Manual) 12.90 H (1.3-7.7) k/uL Metamyelocytes # (Man) 0.86 H (0) k/uL Myelocytes # (Manual) 0.34 H (0) k/uL Macrocytosis Marked A Sodium (137-145) mmol/L BUN (7-17) mg/dL Creatinine (0.52-1.04) mg/dL Glucose (74-99) mg/dL Plasma Lactic Acid Anup 3.5 H* (0.7-2.0) mmol/L Calcium (8.4-10.2) mg/dL Ammonia 76 H (<30) umol/L Microbiology - Last 24 Hours (Table) 08/25/23 14:55 Gram Stain - Preliminary Ascites Fluid Assessment and Plan Assessment: Acute Liver disease with coagulopathy, elevated liver enzymes and bilirubin suspicious for liver failure Alcoholic liver disease, with ascites s/p paracentesis 3.5 L taken out Acute kidney injury. Started on hemodialysis on 08/25/2023 suspected due to hypotension and ATN and there is concern for hepatorenal syndrome Coagulopathy with elevated INR with no evidence of bleeding status post vitamin K Hepatic encephalopathy with high ammonia level Hepatomegaly and splenomegaly secondary to above Leukocytosis Mild anemia Poor oral intake Anasarca secondary to above Elevated lactic acid Obesity with BMI of 31 Plan: Patient with evidence of severe alcoholic liver disease. I calculate MELD score based on her creatinine of 4 (I: Hemoglobin 6.5 and INR maximum number in the calculator) 1.9 and the results of MELD score is 34. There is no GI coverage in this facility, I discussed the case with the patient to transfer her to tertiary [facility] she wanted to wait till she talk to her about follow-up with her tonight she confirmed that she is agreeable to be transferred to another facility after she discussed with her I called her [facility] and initiated the process. Patient with no evidence of alcohol withdrawal. Continue with thiamine Nephrology team on the case and patient was started on hemodialysis yesterday, another dialysis today and 31 on Monday Patient did not respond well to IV Lasix and she has minimal urine output Also she received vitamin K with Atarax mildly improved DVT prophylaxis: Patient already coagulopathic GI prophylaxis Pepcid Prognosis is guarded Discussed with staff, transfer process is initiated and patient is agreeable pending transfer to tertiary care center once bed is available
[2023-08-27 12:56] LABS: INR 1.4 (<1.2); Prothrombin Time 14.9 sec (10.0-12.5)
[2023-08-27 13:08] LABS: Hepatitis A Ab, Total Nonreactive (Nonreactive); Hepatitis A Antibody IgM Nonreactive (Nonreactive); Hepatitis C IgG Antibody Nonreactive (Nonreactive)
[2023-08-27] MEDS: traMADol 50 MG TAB PO PRN (16:47)
--- NOTE | 2023-08-27 17:58 | CT ---
EXAMINATION TYPE: CT abdomen pelvis wo con CT DLP: 831 mGycm, Automated exposure control for dose reduction was used. DATE OF EXAM: 08/27/2023 5:16 PM COMPARISON: CT abdomen pelvis most recent from 08/24/2023 CLINICAL INDICATION:Female, 48 years old with history of abd distension and pain; abd distension and pain TECHNIQUE: Axial CT of the abdomen and pelvis. Sagittal and coronal reformats were created on a [employer] workstation. Contrast used: mL of , (none if empty) Oral contrast used: without Oral Contrast (none if empty) FINDINGS: LOWER CHEST: Unremarkable ABDOMEN LIVER: Redemonstrated enlarged liver, with a Keith lobe configuration as well, with diffusely low at tenuating parenchyma. GALLBLADDER AND BILE DUCTS: Layering biliary sludge is identified. No evidence of biliary duct dilati on. PANCREAS: Unremarkable. SPLEEN: Stable splenomegaly measuring 13.8 cm. ADRENAL GLANDS: Unremarkable. KIDNEYS AND URETERS: No evidence of hydronephrosis or renal calculus. The ureters are unremarkable. PELVIS BLADDER: Decompressed with Small catheter identified. REPRODUCTIVE: Unremarkable. ABDOMEN & PELVIS STOMACH AND BOWEL: Stomach and duodenum are unremarkable. Scattered diverticula are noted throughout the colon. No evidence of bowel obstruction. PERITONEUM/RETROPERITONEUM: Redemonstrated small volume of intra-abdominal ascites. VASCULATURE: Right femoral central venous catheter. No evidence of aortic aneurysm. MUSCULOSKELETAL: No acute osseous abnormalities LYMPH NODES: No gross evidence for lymphadenopathy. SOFT TISSUE/ABDOMINAL WALL: Soft tissue anasarca is identified. IMPRESSION: 1. Stable exam demonstrating findings most likely related to underlying cirrhosis, including marked h epatosplenomegaly and small volume intra-abdominal ascites. 2. Soft tissue anasarca. 3. Biliary sludge.
[2023-08-27] MEDS: ALBUMIN HUMAN 5% 500 ML in EMPTY BAG 1 BAG IVPB ONE (20:25)
[2023-08-27] MEDS: MIDODRINE 5 MG TAB PO STA (20:27)
[2023-08-27 21:50] VITALS: TEMP 97.9
[2023-08-28 05:41] LABS: Anisocytosis Slight; Basophils # (A) 0.1 k/uL (0-0.2); Basophils % (A) 1 %; Eosinophils # (A) 0.1 k/uL (0-0.7); Eosinophils % (A) 1 %; HCT 36.3 % (34.0-46.0); HGB 10.9 gm/dL (11.4-16.0); Hypochromasia Marked; Lymphocytes # (A) 1.4 k/uL (1.0-4.8); Lymphocytes % (A) 9 %; MCH 36.6 pg (25.0-35.0); MCHC 30.1 g/dL (31.0-37.0); Macrocytosis Marked; Mean Platelet Volume 11.2; Monocytes # (A) 0.9 k/uL (0-1.0); Monocytes % (A) 6 %; Neutrophils # (A) 13.1 k/uL (1.3-7.7); Neutrophils % (A) 82 %; Platelet Count 118 k/uL (150-450); RBC 2.98 m/uL (3.80-5.40); RDW 17.6 % (11.5-15.5); WBC 15.9 k/uL (3.8-10.6)
[2023-08-28 05:43] LABS: MCV 121.6 fL (80.0-100.0)
[2023-08-28 06:39] LABS: ALT 37 U/L (4-34); AST 127 U/L (14-36); African American GFR (CKD) 10 (>60 ml/min/1.73 sqM); Albumin 2.6 g/dL (3.5-5.0); Alkaline Phosphatase 248 U/L (38-126); Anion Gap 10 mmol/L; Bilirubin, Conjugated 3.5 mg/dL (0.0-0.3); Bilirubin, Delta 2.6 mg/dL (0.0-0.2); Bilirubin,Unconjugated 1.1 mg/dL (0.0-1.1); Blood Urea Nitrogen 20 mg/dL (7-17); Calcium 6.8 mg/dL (8.4-10.2); Carbon Dioxide 21 mmol/L (22-30); Chloride 100 mmol/L (98-107); Glucose 83 mg/dL (74-99); Non-African American GFR(CKD) 8 (>60 ml/min/1.73 sqM); Potassium 3.6 mmol/L (3.5-5.1); Sodium 131 mmol/L (137-145); Total Bilirubin 7.2 mg/dL (0.2-1.3); Total Protein 5.5 g/dL (6.3-8.2)
[2023-08-28 09:07] VITALS: BP 107/57; PULSE 102; RESP 16
== END 2023-08-28 09:08 | disposition short-term general hospital (02) | DRG 432 ==
LOC: EC 19:30 → 3SCARD 22:37
PROVIDERS: ADMIT Hospitalist; ATTEND Hospitalist
PROC: 06HY33Z Insertion of Infusion Device into Lower Vein, Percutaneous Approach (ICD-10-PCS; 2023-08-25)
PROC: 5A1D70Z Performance of Urinary Filtration, Intermittent, Less than 6 Hours Per Day (ICD-10-PCS; 2023-08-25)
PROC: 0W9G3ZX Drainage of Peritoneal Cavity, Percutaneous Approach, Diagnostic (ICD-10-PCS; principal; 2023-08-25 17:01)
DX: K70.40 Alcoholic hepatic failure without coma (principal); K76.7 Hepatorenal syndrome; N17.0 Acute kidney failure with tubular necrosis; E87.1 Hypo-osmolality and hyponatremia; E87.20 Acidosis, unspecified; D68.4 Acquired coagulation factor deficiency; K70.31 Alcoholic cirrhosis of liver with ascites; I95.9 Hypotension, unspecified; E83.42 Hypomagnesemia; K76.82 Hepatic encephalopathy; E83.39 Other disorders of phosphorus metabolism; F32.A Depression, unspecified; K21.9 Gastro-esophageal reflux disease without esophagitis; Z68.31 Body mass index [BMI] 31.0-31.9, adult; F10.20 Alcohol dependence, uncomplicated; D64.9 Anemia, unspecified; M47.816 Spondylosis without myelopathy or radiculopathy, lumbar region; J45.990 Exercise induced bronchospasm; E66.9 Obesity, unspecified; M47.817 Spondylosis without myelopathy or radiculopathy, lumbosacral region; I83.93 Asymptomatic varicose veins of bilateral lower extremities; H91.90 Unspecified hearing loss, unspecified ear; G43.909 Migraine, unspecified, not intractable, without status migrainosus; F90.9 Attention-deficit hyperactivity disorder, unspecified type; Z77.29 Contact with and (suspected) exposure to other hazardous substances; R16.2 Hepatomegaly with splenomegaly, not elsewhere classified; D72.829 Elevated white blood cell count, unspecified; Z79.899 Other long term (current) drug therapy; Z79.890 Hormone replacement therapy
CPT/HCPCS: 36415; 36556; 49083; 51702; 70450; 71046; 72132; 74176; 74177; 76770; 80048; 80053; 80076; 82140; 82150; 82550; 83605; 83690; 83735; 83880; 84100; 85025; 85049; 85610; 85730; 86706; 86708; 86709; 86803; 87070; 87075; 87205; 87340; 90935; 93005; 96361; 96365; 96366; 96367; 96372; 96375; 99291